=== PATIENT | male | born 1940 | race Caucasian/White ===

== ENCOUNTER → 2020-10-29 | Outpatient (CLI) | payer MEDICARE ==
[~2020-10-29] MED LIST: ASP81TEC PO; CLPD75T PO; LISI2.5T PO; MTP25TSR PO; PRV20T PO
== END ==
LOC: WOUNDCARE 12:30
PROVIDERS: ATTEND Surgery
DX: I70.235 Atherosclerosis of native arteries of right leg with ulceration of other part of foot (principal); I96 Gangrene, not elsewhere classified; L97.512 Non-pressure chronic ulcer of other part of right foot with fat layer exposed; E11.621 Type 2 diabetes mellitus with foot ulcer

== ENCOUNTER 2020-11-04 07:00 | Day surgery (SDC) | payer MEDICARE ==
[2020-11-04] VITALS (12 sets, daily range): BP systolic 116–150; BP diastolic 68–92
[~2020-11-04] VITALS: Ht 176 cm; Wt 88.0 kg
[2020-11-04] MEDS ORDERED: NS IV 1000 ML 1,000 ML ONE (07:34)
[2020-11-04] MEDS ORDERED: LIDOCAINE 1% INJ 20 ML 20 ML VIAL ONE (07:34)
[2020-11-04] MEDS ORDERED: HEParin (CATH LAB) 2,000 ML IV ONE (07:34)
[2020-11-04] MEDS ORDERED: NS IV 1000 ML 1,000 ML IV SCH (07:45)
[2020-11-04 08:09] LABS: HEMOGLOBIN 14.9 g/dL (13.3-17.7); MEAN PLATELET VOLUME 9.5 fL (9.0-12.2)
--- NOTE | 2020-11-04 08:20 | Diagnostic Imaging Report ---
INDICATION: History of hypertension, hyperlipidemia, peripheral vascular disease. Assessment prior to angiography.. TECHNIQUE: Single view chest 8:06 AM. CORRELATION STUDY: 12/19/2011 FINDINGS: The heart size, mediastinal configuration and pulmonary vascularity are within normal limits. Minimal atelectasis left midlung field. No infiltrate. IMPRESSION: 1. Negative for acute abnormality of the chest. Dictated by: Dictated on workstation # [id number]
[2020-11-04 08:29] LABS: PROTHROMBIN TIME PATIENT 13.9 SEC (12.2-14.7)
[2020-11-04] MEDS ORDERED: INSU100V5 SQ (08:31)
[2020-11-04] MEDS ORDERED: LOSA25TA41 PO (08:31)
[2020-11-04] MEDS ORDERED: INSU100V16 SQ (08:31)
[2020-11-04] MEDS ORDERED: ACET-93 PO (08:31)
[2020-11-04] MEDS ORDERED: MIDAZOLAM 5 MG/5 ML (VERSED) VIAL ONE (08:33)
[2020-11-04] MEDS ORDERED: fentaNYL INJECTION 100 MCG/2 ML AMP ONE (08:33)
[2020-11-04 08:38] LABS: BILIRUBIN,TOTAL 0.8 MG/DL (0.1-1.0); CALCIUM 9.5 MG/DL (8.5-10.1); CREATININE SERUM 1.26 MG/DL (0.60-1.30); POTASSIUM 4.2 MMOL/L (3.6-5.0); TOTAL PROTEIN 8.5 GM/DL (6.4-8.2)
[2020-11-04] MEDS ORDERED: HEParin 1000 UNIT/ML (10ML VIAL) FOR BOLUS ONE (09:38)
[2020-11-04] MEDS ORDERED: NITRO DRIP 25000 MCG/D5W 250 ML IV ONE (10:37)
--- NOTE | 2020-11-04 11:03 | Cardiac Procedure Note-CS/ASA ---
Pre-Procedure Note Pre-Op Procedure Note H&P Reviewed The H&P was reviewed, patient examined and no changes noted. Date H&P Reviewed: Nov 04, 2020 Time H&P Reviewed: 09:00 Conscious Sedation Pre-Proced Time 09:00 ASA Score 3 For ASA 3 and 4: Consider anesthesia and medical clearance. Also, for patients with a history of failed moderate sedation consider anesthesia. Airway Lungs Heart ASA score ASA 1: a normal healthy patient ASA 2: a patient with a mild systemic disease (mid diabetes, controlled hypertension, obesity x ASA 3: a patient with a severe systemic disease that limits activity (angina, COPD, prior Myocardial infarction) ASA 4: a patient with an incapacitating disease that is a constant threat to life (CHF, renal failure) ASA 5: a moribund patient not expected to survive 24 hrs. (ruptured aneurysm) ASA 6: a declared brain- patient whose organs are being harvested. For emergent operations, add the letter E after the classification Mallampati Classification Grade 3 Sedation Plan Analgesia, Amnesia, Plan communicated to team members, Discussed options with patient/fam, Discussed risks with patient/fam The patient is an appropriate candidate to undergo the planned procedure, sedation, and anesthesia. The patient immediately re-assessed prior to indication. BEV SALAZAR MD Nov 04, 2020 11:03 am
[2020-11-04] MEDS ORDERED: CLOPIDOGREL 300 MG (PLAVIX) TABLET PO ONE (11:12)
[2020-11-04] MEDS ORDERED: ASPIRIN 325 MG (5 GR) TABLET ONE (11:12)
--- NOTE | 2020-11-04 11:13 | Peripheral Report ---
Peripheral Report Physician (s)/On Air Host (s) Physician BEV SALAZAR MD Pre-Procedure Diagnosis Pre-Procedure Diagnosis: gangrene of the right foot Post-Procedure Note Procedure Start Date: Nov 04, 2020 Name of Procedure: Bilateral lower extremity runoff Third order Additional imaging Angioplasty to the right SFA and popliteal artery Findings/Procedure Note PROCEDURE NOTE: 80 years old gentleman with peripheral arterial disease, gangrene of the right foot, referred for evaluation, had no pulse in his right leg, no waveforms by PVRs. After explaining the procedure to the patient, all pros and cons were explained, all questions were answered. The patient signed the consent and then he was placed on the cardiac catheterization laboratory. The patient was placed on the cardiac catheterization laboratory. Groin was prepped SL fashion local anesthesia was used. Sheath placed in the left femoral artery, runoff to the left leg was done then I advanced a rim catheter to abdominal aortic bifurcation angiogram was done, advance the wire and I was unable to cross over using the rim, I used US catheter which helped with more support to cross over then advanced a straight catheter to the midright SFA. Angiogram was done showed total occlusion of the right SFA. Patient was given 5000 units of heparin, patient had collaterals filling down below the knee, I was unable to see any of the tibials, with significant difficulties I was able to advance command 18, I will unable to advance a mini catheter over it down to the popliteal. I used 3.0 x 40 mm balloon and was able to advance it to the popliteal artery, inject contrast through the shaft of the balloon did not show emptying. I retracted the balloon and did ballooning to the mid SFA to the proximal obstruction, angiogram showed no improvement then I removed the balloon and tried multiple different wires and I was able to advance command 18 down to the posterior tibial, advanced a mini catheter to the posterior tibial artery and removed the wire and injected in the posterior tibial and there was no clearing of the contrast at that area and I kept backing off the mini catheter to the distal SFA and at that area I saw some clearing of the contrast advance the wire again and did 5 x 100 balloon with multiple inflation involving the mid and distal SFA and popliteal artery. There was significant resistant in the popliteal artery, after retrieval of the balloon angiogram showed no improvement. Then I advanced a straight catheter back to the mid SFA and did to injection and I was able to see the distal posterior tibial artery receiving slow flow, the anterior tibial artery is occluded proximally. The sheath was exchanged back into short 6 Swazi sheath and then it was removed and closure device used FINDINGS: Left lower extremity runoff: Sluggish flow with multiple area of severe stenosis in the distal SFA and popliteal artery and tibioperoneal trunk with slow flow distally Right lower extremity runoff: Total occlusion of the distal right SFA with no reconstruction beyond that area, complex intervention with multiple wires and balloons and continue to have the total occlusion with slow flow in the right SFA that I was able to see single vessel at the foot reconstructed by collateral with very slow flow CONCLUSIONS: 1. Severe peripheral arterial disease, total occlusion of the right SFA, multiple collaterals but no reconstruction of artery, after complex attempt for intervention there was single-vessel posterior tibial artery reconstructed by collateral, very slow flow with severe diffuse disease. If we were able to establish some pulse in the posterior tibial artery, a pedal access procedure can be attempted even that the prognosis overall is poor and patient will need right BKA and possible AKA. 2. Left lower extremity has slow flow with multiple significant lesions in the left SFA and popliteal artery DISCUSSION AND RECOMMENDATIONS: Continue to maximize medical therapy, adding Lipitor, continue on aspirin and Plavix. Discuss with the surgeon for possible BKA Anesthesia Type: Conscious Sedation Estimated blood loss (mL): 50 ml Contrast Amount: 100 ml Total Radiation Dose: 203 mGy Post-Procedure Diagnosis Post-operative diagnosis: Critical limb ischemia Peripheral arterial disease Hyperlipidemia Diabetes mellitus BEV SALAZAR MD Nov 04, 2020 11:13 am
[2020-11-04] MEDS ORDERED: PATIENT MAY USE OWN MEDS, ALL PO SCH (11:15)
--- NOTE | 2020-11-04 11:30 | NUR ---
DR SALAZAR AT BEDSIDE. DR SALAZAR UNABLE TO DOPPLER BILATERAL DORSALIS PEDAL PULSES.
[2020-11-04] MEDS: NS IV 1000 ML 1,000 ML IV SCH ×2 (14:03→22:08)
[2020-11-04] MEDS: ACETAMINOPHEN 325 MG TABLET PO PRN (19:47)
[2020-11-05] VITALS: BP 162/91
[2020-11-05 03:36] LABS: HEMOGLOBIN 12.6 g/dL (13.3-17.7); MEAN PLATELET VOLUME 9.5 fL (9.0-12.2); WHITE BLOOD COUNT 7.1 10^3/uL (4.3-11.0)
[2020-11-05 04:00] VITALS: BP 163/96
[2020-11-05 04:07] LABS: CHLORIDE 104 MMOL/L (98-107); POTASSIUM 4.3 MMOL/L (3.6-5.0); SODIUM 139 MMOL/L (135-145)
[2020-11-05 04:08] LABS: CALCIUM 8.1 MG/DL (8.5-10.1)
[2020-11-05 04:09] LABS: GLUCOSE 195 MG/DL (70-105)
[2020-11-05 04:10] LABS: CARBON DIOXIDE 23 MMOL/L (21-32)
[2020-11-05 04:12] LABS: CREATININE SERUM 0.95 MG/DL (0.60-1.30); GFR ESTIMATED > 60
[2020-11-05 04:13] LABS: BUN/CREATININE RATIO 15
[2020-11-05] MEDS: ACETAMINOPHEN 325 MG TABLET PO PRN (06:10)
--- NOTE | 2020-11-05 06:44 | NUR ---
MICRO CONTACTED THIS RN REPORTING MRSA CULTURE PRECATH.
[2020-11-05 07:38] VITALS: BP 145/90
[2020-11-05] MEDS: NS IV 1000 ML 1,000 ML IV SCH ×3 (08:40→20:47)
[2020-11-05] MEDS ORDERED: ASPIRIN E.C. 81 MG (ECOTRIN) TAB PO SCH (09:00)
[2020-11-05] MEDS ORDERED: LOSARTAN 25 MG (COZAAR) TAB PO SCH (09:00)
[2020-11-05] MEDS ORDERED: CLOPIDOGREL 75 MG (PLAVIX) TABLET PO SCH (09:00)
--- NOTE | 2020-11-05 09:04 | Cardiology Discharge Summary ---
Discharge Summary Hospital Course Problems Reviewed?: Yes Hospital Course Date of Admission: Admission Diagnosis : Family Physician/Provider: Date of Discharge: 11/05/20 Discharge Diagnosis: [critical limb ischemia Peripheral arterial disease Hypertension Hyperlipidemia ] Hospital Course: [patient was admitted for elective percutaneous intervention on the right leg, complex intervention was carried out, establish some flow in the posterior tibial artery, still unable to palpate pulse, not discoverable by Doppler. Angiogram showed some flow in the posterior tibial artery, I had long discussion with the patient and with Dr. Calderon regarding the management plan, recommended referral to a tertiary care center for another attempt for intervention prior to proceeding with amputation. Patient agreed on transferring to [place], I contacted Dr. Domingo who reviewed the film and agreed on proceeding with attempt for intervention. Patient requested to go by private vehicle with his son ] Labs and Pending Lab Test: Laboratory Tests 11/05/20 03:17: White Blood Count 7.1, Red Blood Count 4.23L, Hemoglobin 12.6L, Hematocrit 39L, Mean Corpuscular Volume 92, Mean Corpuscular Hemoglobin 30, Mean Corpuscular Hemoglobin Concent 32, Red Cell Distribution Width 11.9, Platelet Count 230, Mean Platelet Volume 9.5, Sodium Level 139, Potassium Level 4.3, Chloride Level 104, Carbon Dioxide Level 23, Anion Gap 12, Blood Urea Nitrogen 14, Creatinine 0.95, Estimat Glomerular Filtration Rate > 60, BUN/Creatinine Ratio 15, Glucose Level 195H, Calcium Level 8.1L Microbiology 11/04/20 MRSA Screen - Final, Complete Home Meds Active Reported Novolog (Insulin Aspart) 100 Unit/1 Ml Susp 6 Unit SQ AC Levemir (Insulin Determir) 1,000 Units/10 Ml Soln 20 Units SQ HS Losartan Potassium 25 Mg Tablet 25 Mg PO DAILY Acetaminophen 500 Mg Tablet 500 Mg PO PRN Plavix (Clopidogrel Bisulfate) 75 Mg Tablet 75 Mg PO DAILY Aspirin Ec 81 Mg (Aspirin) 81 Mg Tabec 81 Mg PO DAILY Assessment/Pt DC Instructions transferred to [facility] by private vehicle Discharge Physical Examination Allergies: Coded Allergies: No Known Drug Allergies (Unverified , 12/19/11) General Appearance: No Apparent Distress, WD/WN HEENT: PERRL/EOMI Respiratory: Chest Non Tender, Lungs Clear Cardiovascular: Regular Rate, Rhythm, No Edema Gastrointestinal: Normal Bowel Sounds Extremity: Other (gangrene on the right first toe, absent pulse) Neurologic/Psychiatric: Alert, Oriented x3 Clinical Quality Measures Admission Status Admission Status: Observation Reason for Inpatient Admission: patient is being transferred to [facility] BEV SALAZAR MD Nov 05, 2020 09:04
[2020-11-05] MEDS ORDERED: ATOR10TA66 PO (09:06)
[2020-11-05 16:00] VITALS: BP 152/83
[2020-11-05 20:00] VITALS: BP 141/76
[2020-11-05 23:07] VITALS: BP 162/94
[2020-11-06] VITALS: BP 169/94
[2020-11-06 04:00] VITALS: BP 162/92
[2020-11-06 05:21] VITALS: BP 160/80
--- NOTE | 2020-11-06 05:29 | NUR ---
0505-pt was discharged to [facility] with his daughter Marissa via private car, pt information packet given to her. this rn informed her that pt did have surgical bath with surgical scrub, has been npo since midnight also. She verbalized understanding and denies any questions.
== END 2020-11-06 05:05 | disposition home or self-care (01) ==
LOC: CATH 07:00 → CSD 11:20 → CATH 11-06 05:05
PROVIDERS: ATTEND Internal Medicine Cardiovascular Disease
DX: I73.9 Peripheral vascular disease, unspecified (principal); I10 Essential (primary) hypertension; E78.2 Mixed hyperlipidemia; Z79.82 Long term (current) use of aspirin; Z79.899 Other long term (current) drug therapy
CPT/HCPCS: 36247; 36248; 37224; 71045; 75716; 80053; 80061; 85027; 85347; 85610; 85730; 87081; C1725 ×2; C1760; C1769 ×4; C1887 ×2; C1894 ×2; 36415

== ENCOUNTER 2020-12-06 16:06 | Emergency (ER) | payer MEDICARE ==
[~2020-12-06] VITALS: Ht 182.8 cm; Wt 88.4 kg
[~2020-12-06 16:06] MED LIST changes: +ACET-93 PO; +ATOR10TA66 PO; +INSU100V16 SQ; +INSU100V5 SQ; +LOSA25TA41 PO
--- NOTE | 2020-12-06 16:39 | ED Lower Extremity ---
General Chief Complaint: Lower Extremity Stated Complaint: R TOE AMP Source: patient Exam Limitations: no limitations History of Present Illness Date Seen by Provider: Dec 06, 2020 Time Seen by Provider: 16:30 Initial Comments This is a healthy appearing 80 yo male who was sent over per the CT to rule out DVT. CT reports patient recently had amputation of right great toe and had c/o of pain in his foot. Also reports he had a positive Homans on RLE. He reports c hills upon arrival to ED and mild pain in his foot, but has no other complaints. Denies cough, shortness of breath, chest pain, nausea/vomiting/diarrhea, or abdominal pain. Allergies and Home Medications Allergies Coded Allergies: No Known Drug Allergies (Unverified , 12/19/11) Home Medications Acetaminophen 500 Mg Tablet, 500 MG PO PRN, (Reported) Aspirin 81 Mg Tabec, 81 MG PO DAILY, (Reported) Atorvastatin Calcium 10 Mg Tablet, 10 MG PO HS Prescribed by: BEV SALAZAR on 11/05/20 0906 Clopidogrel 75 Mg Tablet, 75 MG PO DAILY, (Reported) Insulin Aspart 100 Unit/1 Ml Susp, 6 UNIT SQ AC, (Reported) Insulin Determir 1,000 Units/10 Ml Soln, 20 UNITS SQ HS, (Reported) Levofloxacin 500 Mg Tablet, 500 MG PO DAILY Prescribed by: RAMAN MOLINA on 12/06/20 1728 Losartan Potassium 25 Mg Tablet, 25 MG PO DAILY, (Reported) Patient Home Medication List Home Medication List Reviewed: Yes Review of Systems Constitutional: chills EENTM: no symptoms reported Respiratory: no symptoms reported Cardiovascular: no symptoms reported Gastrointestinal: no symptoms reported Genitourinary: no symptoms reported Musculoskeletal: see HPI Skin: see HPI Psychiatric/Neurological: No Symptoms Reported Past Qghkuqx-Oohpmn-Oygkvp Hx Patient Social History Alcohol Use: Denies Use Recreational Drug Use: No 2nd Hand Smoke Exposure: No Recent Foreign Travel: No Contact w/Someone Who Travel: No Recent Hopitalizations: Yes Immunizations Up To Date Tetanus Booster (TDap): Unknown Date of Pneumonia Vaccine: Aug 08, 2018 Date of Influenza Vaccine: Aug 14, 2020 Past Medical History Surgeries: Yes (prostate,hernia, R toe amputation) Prostatectomy Respiratory: No Cardiac: Yes (STENT PLACEMENT 12/21/2011) High Cholesterol, Hypertension, Peripheral Vascular Neurological: No Reproductive Disorders: No Gastrointestinal: No Musculoskeletal: No Endocrine: Yes Diabetes, Non-Insulin dep Cancer: No Psychosocial: No Integumentary: Yes (chronic ulcer right foor) Blood Disorders: No Physical Exam Vital Signs Vital Signs - First Documented 12/06/20 16:20 Temp 37.8 Pulse 90 Resp 20 B/P (MAP) 163/105 (124) Pulse Ox 97 O2 Delivery Room Air Capillary Refill : Height, Weight, BMI Height: '" Weight: lbs. oz. kg; 28.40 BMI Method: General Appearance: WD/WN, no apparent distress HEENT: PERRL/EOMI Neck: full range of motion, normal inspection Cardiovascular: normal peripheral pulses, regular rate, rhythm Respiratory: lungs clear, normal breath sounds Hips: bilateral hip non-tender, bilateral hip normal inspection, bilateral hip normal range of motion Legs: bilateral leg non-tender, bilateral leg normal inspection, bilateral leg normal range of motion Knees: bilateral knee non-tender, bilateral knee normal inspection, bilateral knee normal range of motion Feet: right foot other (Dressing to Right foot C/D/I) Neurologic/Tendon: normal sensation, normal motor functions, normal tendon functions Neurologic/Psychiatric: alert, normal mood/affect Skin: normal color, warm/dry Progress/Results/Core Measures Results/Orders Lab Results Laboratory Tests Test 12/06/20 16:40 Range/Units White Blood Count 12.3 H 4.3-11.0 10^3/uL Red Blood Count 4.05 L 4.30-5.52 10^6/uL Hemoglobin 11.8 L 13.3-17.7 g/dL Hematocrit 37 L 40-54 % Mean Corpuscular Volume 91 80-99 fL Mean Corpuscular Hemoglobin 29 25-34 pg Mean Corpuscular Hemoglobin Concent 32 32-36 g/dL Red Cell Distribution Width 12.4 10.0-14.5 % Platelet Count 296 130-400 10^3/uL Mean Platelet Volume 9.1 9.0-12.2 fL Immature Granulocyte % (Auto) 0 % Neutrophils (%) (Auto) 85 H 42-75 % Lymphocytes (%) (Auto) 7 L 12-44 % Monocytes (%) (Auto) 7 0-12 % Eosinophils (%) (Auto) 0 0-10 % Basophils (%) (Auto) 0 0-10 % Neutrophils # (Auto) 10.5 H 1.8-7.8 10^3/uL Lymphocytes # (Auto) 0.9 L 1.0-4.0 10^3/uL Monocytes # (Auto) 0.8 0.0-1.0 10^3/uL Eosinophils # (Auto) 0.0 0.0-0.3 10^3/uL Basophils # (Auto) 0.0 0.0-0.1 10^3/uL Immature Granulocyte # (Auto) 0.0 0.0-0.1 10^3/uL Neutrophils % (Manual) 90 % Lymphocytes % (Manual) 8 % Monocytes % (Manual) 2 % Blood Morphology Comment NORMAL Prothrombin Time 14.1 12.2-14.7 SEC INR Comment 1.0 0.8-1.4 Activated Partial Thromboplast Time 33 24-35 SEC Sodium Level 133 L 135-145 MMOL/L Potassium Level 4.4 3.6-5.0 MMOL/L Chloride Level 97 L 98-107 MMOL/L Carbon Dioxide Level 25 21-32 MMOL/L Anion Gap 11 5-14 MMOL/L Blood Urea Nitrogen 17 7-18 MG/DL Creatinine 1.08 0.60-1.30 MG/DL Estimat Glomerular Filtration Rate > 60 BUN/Creatinine Ratio 16 Glucose Level 194 H 70-105 MG/DL Lactic Acid Level 1.77 0.50-2.00 MMOL/L Calcium Level 9.4 8.5-10.1 MG/DL Corrected Calcium 9.6 8.5-10.1 MG/DL Total Bilirubin 0.4 0.1-1.0 MG/DL Aspartate Amino Transf (AST/SGOT) 30 5-34 U/L Alanine Aminotransferase (ALT/SGPT) 31 0-55 U/L Alkaline Phosphatase 89 40-136 U/L Total Protein 8.3 H 6.4-8.2 GM/DL Albumin 3.7 3.2-4.5 GM/DL Micro Results Microbiology 12/06/20 Blood Culture - Preliminary, Resulted No growth 12/06/20 Blood Culture - Preliminary, Resulted No growth My Orders Orders - RAMAN MOLINA FEATHER STITCHER Us Venous Lower Ext Rt (12/06/20 16:09) Cbc With Automated Diff (12/06/20 16:27) Comprehensive Metabolic Panel (12/06/20 16:27) Blood Culture (12/06/20 16:27) Protime With Inr (12/06/20 16:27) Partial Thromboplastin Time (12/06/20 16:27) Ed Iv/Invasive Line Start (12/06/20 16:27) Lactic Acid Analyzer (12/06/20 16:27) Manual Differential (12/06/20 16:40) Vital Signs/I&O 12/06/20 12/06/20 16:20 17:39 Temp 37.8 37.8 Pulse 90 84 Resp 20 20 B/P (MAP) 163/105 (124) 165/86 (124) Pulse Ox 97 98 O2 Delivery Room Air Room Air Progress Progress Note : Progress Note Pt. examined and in no distress. Temperature 37.8. Initiated sepsis workup and orders placed for venous US RLE. Labs reviewed. Slightly elevated WBC-12.3, lactic-1.7. US neg for DVT. Pain is likely from infection in foot. Plan to continue wound vac at CT per surgeon instructions and place on antibiotics. Will place on Levaquin as patient has tolerated well in past, and has med interaction with Bactrim and Losartan. Reviewed discharge plan and he is agreeable with plan. Diagnostic Imaging Diagonstic Imaging: Ultrasound Plain Films/CT/US/NM/MRI: leg Comments NAME: SILVANO MAN [facility] REC#: [id number] PT STATUS: REG ER : 1940 PHYSICIAN: RAMAN MOLINA APRN ADMIT DATE: 12/06/20/ER Draft Date of Exam:12/06/20 US VENOUS LOWER EXT RT PROCEDURE: US right lower extremity venous. TECHNIQUE: Multiple real-time grayscale images were obtained over the right lower extremity in various projections. Additional spectral analysis and color Doppler duplex images were also obtained. INDICATION: Right calf pain, positive Homans sign. Recent right toe amputation. COMPARISON: None FINDINGS: The right common femoral vein, femoral vein, deep femoral vein, and popliteal vein are normal in appearance. These vessels show normal compressibility, color flow and doppler augmentation. The visualized deep calf veins demonstrate no distinct intraluminal thrombus. IMPRESSION: 1. No sonographic evidence of deep venous thrombosis in the right lower extremity. Dictated on workstation # [id number] Dict: 12/06/20 1701 Trans: 12/06/20 1704 [facility] [id number] Interpreted by: MIKE POON MD Electronically signed by: Departure Impression Primary Impression: Infection of right foot Additional Impression: Leg pain Disposition: 01 HOME, SELF-CARE Condition: Stable/Unchanged Departure-Patient Inst. Decision time for Depature: 17:24 Referrals: PERLITA MURILLO MD (PCP/Family) Primary Care Physician Patient Instructions: Amputation of the Foot or Toe (DC) Add. Discharge Instructions: Plan: 1. Discharge back to half-way. Continue wound care as directed by surgeon. 2. May take Tylenol or Ibuprofen as needed for pain per package instructions. 3.Take antibiotics as directed. Keep scheduled follow ups regarding wound care. 4. Return for any new or concerning symptoms. No blood clots identified today. All discharge instructions reviewed with patient and/or family. Voiced understanding. Scripts Levofloxacin (Levofloxacin) 500 Mg Tablet 500 MG PO DAILY for 7 Days, #7 TAB 0 Refills Prov: RAMAN MOLINA FEATHER STITCHER 12/06/20 RAMAN MOLINA FEATHER STITCHER Dec 06, 2020 16:39
[2020-12-06 16:51] LABS: BASOPHILS % (AUTO) 0 % (0-10); EOSINOPHILS % (AUTO) 0 % (0-10); HEMATOCRIT 37 % (40-54); HEMOGLOBIN 11.8 g/dL (13.3-17.7); LYMPHOCYTES # (AUTO) 0.9 10^3/uL (1.0-4.0); LYMPHOCYTES % (AUTO) 7 % (12-44); MEAN CORPUSCULAR HEMOGLOBIN 29 pg (25-34); MEAN CORPUSCULAR HGB CONC 32 g/dL (32-36); MEAN CORPUSCULAR VOLUME 91 fL (80-99); MEAN PLATELET VOLUME 9.1 fL (9.0-12.2); MONOCYTES # (AUTO) 0.8 10^3/uL (0.0-1.0); MONOCYTES % (AUTO) 7 % (0-12); NEUTROPHILS # (AUTO) 10.5 10^3/uL (1.8-7.8); NEUTROPHILS % (AUTO) 85 % (42-75); PLATELET COUNT 296 10^3/uL (130-400); WHITE BLOOD COUNT 12.3 10^3/uL (4.3-11.0)
[2020-12-06 17:01] LABS: ALBUMIN 3.7 GM/DL (3.2-4.5); CHLORIDE 97 MMOL/L (98-107); POTASSIUM 4.4 MMOL/L (3.6-5.0); SODIUM 133 MMOL/L (135-145)
[2020-12-06 17:02] LABS: CALCIUM 9.4 MG/DL (8.5-10.1); PROTHROMBIN TIME PATIENT 14.1 SEC (12.2-14.7)
[2020-12-06 17:03] LABS: GLUCOSE 194 MG/DL (70-105); TOTAL PROTEIN 8.3 GM/DL (6.4-8.2)
[2020-12-06 17:04] LABS: CARBON DIOXIDE 25 MMOL/L (21-32)
[2020-12-06 17:05] LABS: BILIRUBIN,TOTAL 0.4 MG/DL (0.1-1.0)
--- NOTE | 2020-12-06 17:05 | Diagnostic Imaging Report ---
PROCEDURE: US right lower extremity venous. TECHNIQUE: Multiple real-time grayscale images were obtained over the right lower extremity in various projections. Additional spectral analysis and color Doppler duplex images were also obtained. INDICATION: Right calf pain, positive Homans sign. Recent right toe amputation. COMPARISON: None FINDINGS: The right common femoral vein, femoral vein, deep femoral vein, and popliteal vein are normal in appearance. These vessels show normal compressibility, color flow and doppler augmentation. The visualized deep calf veins demonstrate no distinct intraluminal thrombus. IMPRESSION: 1. No sonographic evidence of deep venous thrombosis in the right lower extremity. Dictated by: Dictated on workstation # [id number]
[2020-12-06 17:07] LABS: ALKALINE PHOSPHATASE 89 U/L (40-136); CREATININE SERUM 1.08 MG/DL (0.60-1.30); GFR ESTIMATED > 60
[2020-12-06 17:08] LABS: BUN/CREATININE RATIO 16
[2020-12-06 17:10] LABS: ALANINE AMINOTRANSFERASE 31 U/L (0-55)
[2020-12-06 17:24] LABS: NEUTROPHILS % (MANUAL) 90 %
[2020-12-06 17:25] LABS: LYMPHOCYTES % (MANUAL) 8 %; MONOCYTES % (MANUAL) 2 %; RBC MORPH NORMAL
--- NOTE | 2020-12-06 17:26 | NUR ---
Called [facility] for transportation for pt back to [facility].
[2020-12-06] MEDS ORDERED: LEVO500T80 PO (17:28)
[2020-12-06 17:39] VITALS: BP 165/86
--- NOTE | 2020-12-06 18:23 | NUR ---
Called [facility] and was told transportation would be here in 20 minutes.
== END 2020-12-06 18:40 | disposition home or self-care (01) ==
LOC: EDUNIT# 16:06 → ER 16:08
DX: L08.9 Local infection of the skin and subcutaneous tissue, unspecified (principal); M79.661 Pain in right lower leg; I10 Essential (primary) hypertension; E78.00 Pure hypercholesterolemia, unspecified; E11.9 Type 2 diabetes mellitus without complications; Z89.421 Acquired absence of other right toe(s); Z79.4 Long term (current) use of insulin; Z79.82 Long term (current) use of aspirin
CPT/HCPCS: 36415; 80053; 83605; 85007; 85027; 85610; 85730; 87040

== ENCOUNTER → 2021-03-26 | Outpatient (CLI) | payer MEDICARE ==
[~2021-03-26] VITALS: Ht 182 cm; Wt 89.0 kg
[~2021-03-26] MED LIST changes: +CATHETER FLUSH 10 ML SYR IV PRN; +LEVO500T80 PO; +REGADENOSON 0.4 MG/5 ML SYR (LEXISCAN) IV ONE
[2021-03-26 12:12] VITALS: BP 150/99
--- NOTE | 2021-03-26 14:40 | Cardiology Stress Test Report ---
Stress Test Report Date of Procedure/Referring: Date of Procedure: Mar 26, 2021 PCP Bev Chu MD Admitting Physician Jm Taylor MD Indications: HTN Baseline Heart Rate: 80 Baseline Blood Pressure: Blood Pressure Systolic: 150 Blood Pressure Diastolic: 99 Baseline Vitals Vital Signs Date Time Temp Pulse Resp B/P (MAP) Pulse Ox O2 Delivery O2 Flow Rate FiO2 03/26/21 12:12 79 16 150/99 (116) 98 Room Air Baseline EKG: Baseline EKG: NSR Summary After explaining the procedure to the patient, he signed a consent and then brought to the stress nuclear laboratory. Patient received 0.4 mg Lexiscan for stress test, ECG, heart rate and blood pressure were monitored continuously. Resting and stress dose of radio tracer were injected, imaging was acquired and reviewed in short axis, horizontal long axis and vertical long axis views. TID: 0.91 SSS: 7 SDS: 2 EF: 68 1. Patient tolerated Lexiscan well 2. Diaphragmatic attenuation with fixed defect at the basal to mid inferior wall and inferolateral wall, could be an old infarct. No significant ischemia was noted. 3. Normal left ventricular size with hypokinesia at the inferior wall and inferolateral wall, ejection fraction 68% BEV CHU MD Mar 26, 2021 14:40
== END ==
LOC: CARD 09:58
PROVIDERS: ATTEND Internal Medicine Cardiovascular Disease
DX: I10 Essential (primary) hypertension (principal); R07.9 Chest pain, unspecified
CPT/HCPCS: 78452; 93017; 93306; A9502

== ENCOUNTER 2021-05-15 13:54 | Emergency (ER) | payer MEDICARE ==
[~2021-05-15] VITALS: Ht 182 cm; Wt 83.9 kg
[~2021-05-15 13:54] MED LIST changes: -CATHETER FLUSH 10 ML SYR IV PRN; -REGADENOSON 0.4 MG/5 ML SYR (LEXISCAN) IV ONE
--- NOTE | 2021-05-15 14:08 | ED General ---
General Stated Complaint: WEAKNESS,COVID + Source of Information: Patient Exam Limitations: No Limitations (ALLEN BASSETT APRN) History of Present Illness Date Seen by Provider: May 15, 2021 Time Seen by Provider: 14:06 Initial Comments To ER with reports of weakness and Covid positive. He states that he has been feeling ill for about 2 weeks and tested positive about a week ago. He is from [facility]. They called his primary care provider and reported his poor intake. Was given an order for IV fluids at the detention but they were unable to establish IV access so they referred the patient to the emergency room for further work-up. He reports that he had some nausea earlier but none currently. Denies any pain or shortness of breath. Timing/Duration: Constant Severity: Moderate Associated Systoms: Weakness (ALLEN BASSETT APRN) Allergies and Home Medications Allergies Coded Allergies: No Known Drug Allergies (Unverified , 12/19/11) Home Medications Acetaminophen 500 Mg Tablet, 500 MG PO PRN, (Reported) Aspirin 81 Mg Tabec, 81 MG PO DAILY, (Reported) Atorvastatin Calcium 10 Mg Tablet, 10 MG PO HS Prescribed by: BEV SALAZAR on 11/05/20 0906 Cefuroxime Axetil 250 Mg Tablet, 250 MG PO BID Prescribed by: ALLEN BASSETT on 05/15/21 1533 Clopidogrel 75 Mg Tablet, 75 MG PO DAILY, (Reported) Insulin Aspart 100 Unit/1 Ml Susp, 6 UNIT SQ AC, (Reported) Insulin Determir 1,000 Units/10 Ml Soln, 20 UNITS SQ HS, (Reported) Levofloxacin 500 Mg Tablet, 500 MG PO DAILY Prescribed by: RAMAN MOLINA on 12/06/20 1728 Losartan Potassium 25 Mg Tablet, 25 MG PO DAILY, (Reported) Patient Home Medication List Home Medication List Reviewed: Yes (ALLEN BASSETT APRN) Review of Systems Review of Systems Constitutional: see HPI EENTM: see HPI Respiratory: no symptoms reported Cardiovascular: no symptoms reported Genitourinary: no symptoms reported Musculoskeletal: no symptoms reported Skin: no symptoms reported Psychiatric/Neurological: No Symptoms Reported Hematologic/Lymphatic: No Symptoms Reported Immunological/Allergic: no symptoms reported (ALLEN BASSETT APRN) Past Auondzc-Gqtxgw-Iucdum Hx Patient Social History 2nd Hand Smoke Exposure: No Recent Hopitalizations: Yes (ALLEN BASSETT APRN) Immunizations Up To Date Tetanus Booster (TDap): Unknown Date of Pneumonia Vaccine: Aug 08, 2018 Date of Influenza Vaccine: Aug 14, 2020 (ALLEN BASSETT APRN) Past Medical History Surgeries: Yes (prostate,hernia, R toe amputation) Prostatectomy Respiratory: No Cardiac: Yes (STENT PLACEMENT 12/21/2011) High Cholesterol, Hypertension, Peripheral Vascular Neurological: No Reproductive Disorders: No Gastrointestinal: No Musculoskeletal: No Endocrine: Yes Diabetes, Non-Insulin dep Cancer: No Psychosocial: No Integumentary: Yes (chronic ulcer right foor) Blood Disorders: No (ALLEN BASSETT APRN) Physical Exam Vital Signs Vital Signs - First Documented (RUBIN FLETCHER MD) Vital Signs Capillary Refill : (ALLEN BASSETT APRN) Height, Weight, BMI Height: '" Weight: lbs. oz. kg; 26.86 BMI Method: General Appearance: No Apparent Distress, WD/WN, Other (Alert and oriented no distress speaks in full sentences. Oxygen saturation 89 to 90% on room air. Given 2 L of supplemental oxygen) Eyes: Bilateral Eye Normal Inspection, Bilateral Eye PERRL, Bilateral Eye EOMI HEENT: PERRL/EOMI, TMs Normal Neck: Full Range of Motion, Normal Inspection Respiratory: No Accessory Muscle Use, No Respiratory Distress, Decreased Breath Sounds Cardiovascular: Regular Rate, Rhythm, Normal Peripheral Pulses Gastrointestinal: Normal Bowel Sounds, Non Tender, Soft Extremity: Other (Right leg amputation) Neurologic/Psychiatric: Alert, Oriented x3 Skin: Normal Color, Warm/Dry (ALLEN BASSETT APRN) Progress/Results/Core Measures Suspected Sepsis SIRS Temperature: Pulse: Respiratory Rate: Laboratory Tests 05/15/21 14:00: White Blood Count 6.4 Blood Pressure / Mean: Laboratory Tests 05/15/21 14:00: Creatinine 1.20, INR Comment 1.0, Platelet Count 198, Total Bilirubin 0.5 (ALLEN BASSETT APRN) Results/Orders Lab Results Laboratory Tests Test 05/15/21 14:00 Range/Units White Blood Count 6.4 4.3-11.0 10^3/uL Red Blood Count 4.98 4.30-5.52 10^6/uL Hemoglobin 14.8 13.3-17.7 g/dL Hematocrit 45 40-54 % Mean Corpuscular Volume 89 80-99 fL Mean Corpuscular Hemoglobin 30 25-34 pg Mean Corpuscular Hemoglobin Concent 33 32-36 g/dL Red Cell Distribution Width 13.7 10.0-14.5 % Platelet Count 198 130-400 10^3/uL Mean Platelet Volume 8.7 L 9.0-12.2 fL Immature Granulocyte % (Auto) 0 % Neutrophils (%) (Auto) 85 H 42-75 % Lymphocytes (%) (Auto) 8 L 12-44 % Monocytes (%) (Auto) 6 0-12 % Eosinophils (%) (Auto) 0 0-10 % Basophils (%) (Auto) 0 0-10 % Neutrophils # (Auto) 5.4 1.8-7.8 X 10^3 Lymphocytes # (Auto) 0.5 L 1.0-4.0 X 10^3 Monocytes # (Auto) 0.4 0.0-1.0 X 10^3 Eosinophils # (Auto) 0.0 0.0-0.3 10^3/uL Basophils # (Auto) 0.0 0.0-0.1 10^3/uL Immature Granulocyte # (Auto) 0.0 0.0-0.1 10^3/uL Prothrombin Time 13.5 12.2-14.7 SEC INR Comment 1.0 0.8-1.4 D-Dimer 1.48 H 0.00-0.49 UG/ML Sodium Level 137 135-145 MMOL/L Potassium Level 4.0 3.6-5.0 MMOL/L Chloride Level 100 98-107 MMOL/L Carbon Dioxide Level 21 21-32 MMOL/L Anion Gap 16 H 5-14 MMOL/L Blood Urea Nitrogen 28 H 7-18 MG/DL Creatinine 1.20 0.60-1.30 MG/DL Estimat Glomerular Filtration Rate 58 BUN/Creatinine Ratio 23 Glucose Level 109 H 70-105 MG/DL Calcium Level 9.1 8.5-10.1 MG/DL Corrected Calcium 9.3 8.5-10.1 MG/DL Total Bilirubin 0.5 0.1-1.0 MG/DL Aspartate Amino Transf (AST/SGOT) 41 H 5-34 U/L Alanine Aminotransferase (ALT/SGPT) 24 0-55 U/L Alkaline Phosphatase 59 40-136 U/L C-Reactive Protein High Sensitivity 20.84 H 0.00-0.50 MG/DL Total Protein 7.5 6.4-8.2 GM/DL Albumin 3.7 3.2-4.5 GM/DL Procalcitonin 0.50 H <0.10 NG/ML (RUBIN FLETCHER MD) Medications Given in ED Current Medications Medications Dose Ordered Sig/Meek Route Start Time Stop Time Status Last Admin Dose Admin Iohexol 100 ml ONCE ONCE IV 05/15/21 14:45 05/15/21 14:46 DC 05/15/21 15:07 74 ML Sodium Chloride 10 ml NEEDED PRN IV 05/15/21 14:45 05/15/21 18:10 DC 05/15/21 15:08 10 ML Sodium Chloride 100 ml ONCE ONCE IV 05/15/21 14:45 05/15/21 14:46 DC 05/15/21 15:08 80 ML (RUBIN FLETCHER MD) Vital Signs/I&O 05/15/21 05/15/21 05/15/21 14:13 14:13 18:00 Temp 38.0 38.0 Pulse 96 93 Resp 18 18 B/P (MAP) 127/83 (98) 143/75 (98) Pulse Ox 95 97 O2 Delivery Nasal Cannula Nasal Cannula O2 Flow Rate 2.00 2.00 2.00 (RUBIN FLETCHER MD) Vital Signs/I&O Capillary Refill : (ALLEN BASSETT APRN) Diagnostic Imaging Diagonstic Imaging: Xray Comments NAME: SILVANO MAN [facility] REC#: [id number] PT STATUS: REG ER : 1940 PHYSICIAN: ALLEN BASSETT APRN ADMIT DATE: 05/15/21/ER Draft Date of Exam:05/15/21 CHEST 1 VIEW, AP/PA ONLY INDICATION: Cough, Covid positive patient. EXAMINATION: PA chest was obtained at 2:25 p.m. FINDINGS: Heart is normal in size. Mediastinal silhouette is unremarkable. There is some minimal patchy infiltrate in the left base. Lung pérez are otherwise clear. There is no pneumothorax or pleural fluid. IMPRESSION: Minimal patchy infiltrate in the left lung base. Otherwise negative chest. Dictated on workstation # [id number] Dict: 05/15/21 1440 Trans: 05/15/21 1451 PJE [id number] Interpreted by: ALFA HILL MD Electronically signed by: (ALLEN BASSETT APRN) Departure Communication (Admissions) Family Conversation NAME: SILVANO MAN [facility] REC#: [id number] PT STATUS: REG ER : 1940 PHYSICIAN: ALLEN BASSETT APRN ADMIT DATE: 05/15/21/ER Signed Date of Exam:05/15/21 CT ANGIO CHEST W PROCEDURE: CT angiography of the chest with contrast. TECHNIQUE: Multiple contiguous axial images were obtained through the chest after uneventful bolus administration of intravenous contrast. 3D reconstructed CTA MIP acquisitions were also performed. Auto Exposure Controls were utilized during the CT exam to meet ALARA standards for radiation dose reduction. INDICATION: Covid-19 positive. Patient has weakness and elevated d-dimer. COMPARISON: No prior studies are available for comparison. Evaluation of the pulmonary arterial system is without evidence of thromboembolism. No filling defects are seen within central, lobar or segmental branches. No pericardial or pleural fluid is identified. No axillary, hilar or mediastinal lymphadenopathy is detected. There are patchy airspace infiltrates in bilateral lower lobes as well as portions of the lingula suggestive of pneumonia. Upper abdomen demonstrates small stones within the gallbladder. IMPRESSION: 1. No evidence of pulmonary embolism or thoracic aortic dissection. 2. Patchy bibasilar infiltrates. 3. Cholelithiasis. Dictated by: Dictated on workstation # [id number] Dict: 05/15/21 1515 Trans: 05/15/21 1526 PJE [id number] Interpreted by: ALIA RODRIGUEZ MD Electronically signed by: ALIA RODRIGUEZ MD 05/15/21 1526 1425-RN Trintiy from [facility] called to report that if we can establish IV access they could give the IV fluids and the Regeneron at their facility. Discussed with her that the IV fluids were already started here, I will give an order for supplemental O2 at the detention and they state that they already have the order for Regeneron to infuse. 1531-I spoke with Adrienne Black from [facility] . Will check CBC CMP here give 1 L of IV fluids, CT angio chest to evaluate for PE. I will discharged home to the detention on Ceftin given the infiltrate plus the slightly elevated procalcitonin, supplemental oxygen at 2 to 6 L/min per nasal cannula as needed to keep sats above 90%. 1544-his oxygen saturation at this time is 93 on room air. His supplemental oxygen has been turned off. 1555 his oxygen saturation has fallen to 88-89% on room air. This disqualifies him from regeneron infusion. O2 turned back on at 2LPM (ALLEN BASSETT APRN) Impression Primary Impression: COVID-19 Disposition: 01 HOME, SELF-CARE Condition: Stable Departure-Patient Inst. Decision time for Depature: 15:31 (ALLEN BASSETT APRN) Referrals: PERLITA MURILLO MD (PCP/Family) Primary Care Physician Patient Instructions: COVID-19 Overview Add. Discharge Instructions: 1. Return to ER for any concerns 2. Follow-up with your doctor next week Scripts Cefuroxime Axetil (Cefuroxime) 250 Mg Tablet 250 MG PO BID, #10 TAB Prov: ALLEN BASSETT APRN 05/15/21 Attending physician statement: I was physically present as attending physician in the emergency room at the time of this patient's care, but I was not directly involved in the patient's care. (RUBIN FLETCHER MD) Copy Copies To 1: PERLITA MURILLO MD, PETER J APRN May 15, 2021 14:08 RUBIN FLETCHER MD May 15, 2021 19:28
[2021-05-15] MEDS ORDERED: NS IV 1000 ML 1,000 ML IV SCH (14:15)
[2021-05-15 14:16] LABS: BASOPHILS % (AUTO) 0 % (0-10); EOSINOPHILS % (AUTO) 0 % (0-10); HEMATOCRIT 45 % (40-54); HEMOGLOBIN 14.8 g/dL (13.3-17.7); LYMPHOCYTES # (AUTO) 0.5 X 10^3 (1.0-4.0); LYMPHOCYTES % (AUTO) 8 % (12-44); MEAN CORPUSCULAR HEMOGLOBIN 30 pg (25-34); MEAN CORPUSCULAR HGB CONC 33 g/dL (32-36); MEAN CORPUSCULAR VOLUME 89 fL (80-99); MEAN PLATELET VOLUME 8.7 fL (9.0-12.2); MONOCYTES # (AUTO) 0.4 X 10^3 (0.0-1.0); MONOCYTES % (AUTO) 6 % (0-12); NEUTROPHILS # (AUTO) 5.4 X 10^3 (1.8-7.8); NEUTROPHILS % (AUTO) 85 % (42-75); PLATELET COUNT 198 10^3/uL (130-400); WHITE BLOOD COUNT 6.4 10^3/uL (4.3-11.0)
[2021-05-15 14:28] LABS: ALBUMIN 3.7 GM/DL (3.2-4.5)
[2021-05-15 14:30] LABS: CALCIUM 9.1 MG/DL (8.5-10.1); FIBRIN DEGRADATION PRODUCTS 1.48 UG/ML (0.00-0.49); PROTHROMBIN TIME PATIENT 13.5 SEC (12.2-14.7)
[2021-05-15 14:31] LABS: TOTAL PROTEIN 7.5 GM/DL (6.4-8.2)
[2021-05-15 14:33] LABS: BILIRUBIN,TOTAL 0.5 MG/DL (0.1-1.0)
[2021-05-15 14:35] LABS: CREATININE SERUM 1.2 MG/DL (0.60-1.30)
[2021-05-15] MEDS ORDERED: CATHETER FLUSH 10 ML SYR IV PRN (14:45)
[2021-05-15] MEDS ORDERED: NS 100 ML (IVPB) BAG IV ONE (14:45)
[2021-05-15] MEDS ORDERED: HOLD METFORMIN - RECEIVED CONTRAST 20 ML VIAL IV SCH (14:45)
[2021-05-15] MEDS ORDERED: IOHEXOL 350 MG/ML 100 ML (OMNIPAQUE 350) VIAL IV ONE (14:45)
--- NOTE | 2021-05-15 14:51 | Diagnostic Imaging Report ---
INDICATION: Cough, Covid positive patient. EXAMINATION: PA chest was obtained at 2:25 p.m. FINDINGS: Heart is normal in size. Mediastinal silhouette is unremarkable. There is some minimal patchy infiltrate in the left base. Lung pérez are otherwise clear. There is no pneumothorax or pleural fluid. IMPRESSION: Minimal patchy infiltrate in the left lung base. Otherwise negative chest. Dictated by: Dictated on workstation # [id number]
--- NOTE | 2021-05-15 15:24 | Diagnostic Imaging Report ---
PROCEDURE: CT angiography of the chest with contrast. TECHNIQUE: Multiple contiguous axial images were obtained through the chest after uneventful bolus administration of intravenous contrast. 3D reconstructed CTA MIP acquisitions were also performed. Auto Exposure Controls were utilized during the CT exam to meet ALARA standards for radiation dose reduction. INDICATION: Covid-19 positive. Patient has weakness and elevated d-dimer. COMPARISON: No prior studies are available for comparison. Evaluation of the pulmonary arterial system is without evidence of thromboembolism. No filling defects are seen within central, lobar or segmental branches. No pericardial or pleural fluid is identified. No axillary, hilar or mediastinal lymphadenopathy is detected. There are patchy airspace infiltrates in bilateral lower lobes as well as portions of the lingula suggestive of pneumonia. Upper abdomen demonstrates small stones within the gallbladder. IMPRESSION: 1. No evidence of pulmonary embolism or thoracic aortic dissection. 2. Patchy bibasilar infiltrates. 3. Cholelithiasis. Dictated by: Dictated on workstation # [id number]
[2021-05-15] MEDS ORDERED: CEFU250T80 PO (15:33)
[2021-05-15 18:00] VITALS: BP 143/75
== END 2021-05-15 18:00 | disposition home or self-care (01) ==
LOC: EDUNIT# 13:54 → ER 13:56
DX: U07.1 COVID-19 (principal); I10 Essential (primary) hypertension; E78.00 Pure hypercholesterolemia, unspecified; E11.9 Type 2 diabetes mellitus without complications; Z79.82 Long term (current) use of aspirin; Z79.899 Other long term (current) drug therapy
CPT/HCPCS: 36415; 71045; 71275; 80053; 84145; 85025; 85379; 85610; 86141

== ENCOUNTER 2021-05-16 13:34 | Outpatient (CLI) | payer MEDICARE ==
[~2021-05-16] VITALS: Ht 182.9 cm
[~2021-05-16 13:34] MED LIST changes: +CEFU250T80 PO
[2021-05-16 13:35] VITALS: BP 109/77
[2021-05-16] MEDS ORDERED: diphenhydrAMINE 50 MG/ML INJ (BENADRYL) IV PRN (13:45)
[2021-05-16] MEDS ORDERED: [UNRECOGNIZED DRUG - OTHER] IV ONE (13:45)
[2021-05-16] MEDS ORDERED: EPINEPHrine INJECTION 1 MG/ML AMP IM PRN (13:45)
== END 2021-05-16 14:35 | disposition home or self-care (01) ==
LOC: INFUSION 13:34
PROVIDERS: ATTEND Nurse Practitioner Community Health
DX: Z23 Encounter for immunization (principal); U07.1 COVID-19

== ENCOUNTER 2021-05-16 15:04 | Emergency (ER) | payer MEDICARE ==
[~2021-05-16] VITALS: Ht 177 cm; Wt 70.0 kg
--- NOTE | 2021-05-16 15:52 | ED Respiratory ---
General Chief Complaint: Respiratory Problems Stated Complaint: COVID POSITIVE Source: patient Exam Limitations: no limitations (ALLEN BASSETT APRN) History of Present Illness Date Seen by Provider: May 16, 2021 Time Seen by Provider: 15:51 Initial Comments To ER with reports of hypoxia and worsening respiratory difficulties. Patient tested positive for Covid at [facility] apparently on the of this month. He is vaccinated with either Moderna or Pfizer, he is not sure which. Yesterday he was started on supplemental oxygen at 2 to 6 L per nasal cannula. He was 89% on room air and up to 94% on 2 L. Today he has needed up to 6 L at one point to keep his oxygen saturation up. He had a negative CT angio chest yesterday. Timing/Duration: constant Prior Episodes/Possible Cause: no prior episodes Modifying Factors: Improves With Activity Associated Symptoms: cough, shortness of breath (ALLEN BASSETT APRN) Allergies and Home Medications Allergies Coded Allergies: No Known Drug Allergies (Unverified , 12/19/11) Home Medications Acetaminophen 500 Mg Tablet, 500 MG PO PRN, (Reported) Aspirin 81 Mg Tabec, 81 MG PO DAILY, (Reported) Atorvastatin Calcium 10 Mg Tablet, 10 MG PO HS Prescribed by: BEV SALAZAR on 11/05/20 0906 Cefuroxime Axetil 250 Mg Tablet, 250 MG PO BID Prescribed by: ALLEN BASSETT on 05/15/21 1533 Clopidogrel 75 Mg Tablet, 75 MG PO DAILY, (Reported) Insulin Aspart 100 Unit/1 Ml Susp, 6 UNIT SQ AC, (Reported) Insulin Determir 1,000 Units/10 Ml Soln, 20 UNITS SQ HS, (Reported) Levofloxacin 500 Mg Tablet, 500 MG PO DAILY Prescribed by: RAMAN MOLINA on 12/06/20 1728 Losartan Potassium 25 Mg Tablet, 25 MG PO DAILY, (Reported) Patient Home Medication List Home Medication List Reviewed: Yes (ALLEN BASSETT APRN) Review of Systems Review of Systems Constitutional: see HPI EENTM: see HPI Respiratory: see HPI, cough Cardiovascular: no symptoms reported Genitourinary: no symptoms reported Musculoskeletal: no symptoms reported Skin: no symptoms reported Psychiatric/Neurological: No Symptoms Reported Hematologic/Lymphatic: No Symptoms Reported Immunological/Allergic: no symptoms reported (ALLEN BASSETT APRN) Past Uvaxjxz-Tbmnpt-Fdhsbn Hx Patient Social History 2nd Hand Smoke Exposure: No Recent Hopitalizations: Yes (ALLEN BASSETT APRN) Immunizations Up To Date Tetanus Booster (TDap): Unknown Date of Pneumonia Vaccine: Aug 08, 2018 Date of Influenza Vaccine: Aug 14, 2020 (ALLEN BASSETT APRN) Past Medical History Surgeries: Yes (prostate,hernia, R toe amputation, r above the knee amp) Prostatectomy Respiratory: No Cardiac: Yes (STENT PLACEMENT 12/21/2011) Coronary Artery Disease, High Cholesterol, Hypertension, Peripheral Vascular Neurological: No Reproductive Disorders: No Gastrointestinal: No Musculoskeletal: No Endocrine: Yes Diabetes, Non-Insulin dep Cancer: No Psychosocial: No Integumentary: Yes (chronic ulcer right foor) Blood Disorders: No (ALLEN BASSETT APRN) Physical Exam Vital Signs - First Documented 05/16/21 05/16/21 15:56 18:37 Temp 36.6 Pulse 90 Resp 18 B/P (MAP) 130/90 (103) Pulse Ox 98 O2 Delivery Nasal Cannula O2 Flow Rate 3.00 (RUBIN FLETCHER MD) Capillary Refill : (ALLEN BASSETT APRN) Height: '" Weight: lbs. oz. kg; 25.00 BMI Method: General Appearance: WD/WN, no apparent distress Eyes: Bilateral Eye Normal Inspection, Bilateral Eye PERRL HEENT: PERRL/EOMI, normal ENT inspection Respiratory: no respiratory distress, no accessory muscle use, decreased breath sounds, crackles, other (95% at 3L) Gastrointestinal: normal bowel sounds, non tender, soft Neurologic/Psychiatric: alert, normal mood/affect, oriented x 3 Skin: normal color, warm/dry (ALLEN BASSETT APRN) Progress/Results/Core Measures Suspected Sepsis SIRS Temperature: Pulse: Respiratory Rate: Laboratory Tests 05/16/21 15:45: White Blood Count 5.9 Blood Pressure / Mean: Laboratory Tests 05/16/21 15:45: Creatinine 1.05, Platelet Count 185 (ALLEN BASSETT APRN) Results/Orders Lab Results Laboratory Tests Test 05/16/21 15:45 05/16/21 16:34 Range/Units White Blood Count 5.9 4.3-11.0 10^3/uL Red Blood Count 4.96 4.30-5.52 10^6/uL Hemoglobin 14.6 13.3-17.7 g/dL Hematocrit 45 40-54 % Mean Corpuscular Volume 91 80-99 fL Mean Corpuscular Hemoglobin 29 25-34 pg Mean Corpuscular Hemoglobin Concent 33 32-36 g/dL Red Cell Distribution Width 14.0 10.0-14.5 % Platelet Count 185 130-400 10^3/uL Mean Platelet Volume 8.9 L 9.0-12.2 fL Immature Granulocyte % (Auto) 1 % Neutrophils (%) (Auto) 78 H 42-75 % Lymphocytes (%) (Auto) 13 12-44 % Monocytes (%) (Auto) 8 0-12 % Eosinophils (%) (Auto) 0 0-10 % Basophils (%) (Auto) 0 0-10 % Neutrophils # (Auto) 4.6 1.8-7.8 10^3/uL Lymphocytes # (Auto) 0.8 L 1.0-4.0 10^3/uL Monocytes # (Auto) 0.4 0.0-1.0 10^3/uL Eosinophils # (Auto) 0.0 0.0-0.3 10^3/uL Basophils # (Auto) 0.0 0.0-0.1 10^3/uL Immature Granulocyte # (Auto) 0.0 0.0-0.1 10^3/uL D-Dimer 1.69 H 0.00-0.49 UG/ML Sodium Level 139 135-145 MMOL/L Potassium Level 4.3 3.6-5.0 MMOL/L Chloride Level 105 98-107 MMOL/L Carbon Dioxide Level 20 L 21-32 MMOL/L Anion Gap 14 5-14 MMOL/L Blood Urea Nitrogen 29 H 7-18 MG/DL Creatinine 1.05 0.60-1.30 MG/DL Estimat Glomerular Filtration Rate > 60 BUN/Creatinine Ratio 28 Glucose Level 117 H 70-105 MG/DL Calcium Level 8.7 8.5-10.1 MG/DL C-Reactive Protein High Sensitivity 15.39 H 0.00-0.50 MG/DL Procalcitonin 0.29 H <0.10 NG/ML Blood Gas Puncture Site R. RAD Blood Gas Patient Temperature 97.8 Arterial Blood pH 7.41 7.37-7.43 Arterial Blood Partial Pressure CO2 26 L 35-45 MMHG Arterial Blood Partial Pressure O2 69 L 79-93 MMHG Arterial Blood HCO3 16 *L 23-27 MMOL/L Arterial Blood Total CO2 17.0 L 21.0-31.0 MMOL/L Arterial Blood Oxygen Saturation 94 94-100 % Arterial Blood Base Excess -7.7 L -2.5-2.5 MMOL/L Jeremias Test YES-POS Blood Gas Ventilator Setting NO Blood Gas Inspired Oxygen 3 (RUBIN FLETCHER MD) Vital Signs/I&O 05/16/21 05/16/21 05/16/21 15:56 17:39 18:37 Temp 36.6 36.6 Pulse 90 94 90 Resp 18 18 18 B/P (MAP) 130/90 (103) 118/66 118/66 Pulse Ox 98 O2 Delivery Nasal Cannula O2 Flow Rate 3.00 (RUBIN FLETCHER MD) Vital Signs/I&O Capillary Refill : (ALLEN BASSETT APRN) Diagnostic Imaging Diagonstic Imaging: Xray Plain Films/CT/US/NM/MRI: chest Comments NAME: SILVANO MAN [facility] REC#: [id number] PT STATUS: REG ER : 1940 PHYSICIAN: ALLEN BASSETT APRN ADMIT DATE: 05/16/21/ER Draft Date of Exam:05/16/21 CHEST 1 VIEW, AP/PA ONLY HISTORY: Covid positive. COMPARISON: 05/15/2021 FINDINGS: Single frontal view of the chest redemonstrates mild patchy opacity in the left lung base, unchanged since the prior exam. No new consolidation is seen. There is no pleural effusion or pneumothorax. The cardiac silhouette is stable in size. IMPRESSION: 1. Stable opacities in the left lung base since the prior exam. No new consolidation is seen. Dictated on workstation # [id number] Dict: 05/16/21 1618 Trans: 05/16/21 1620 [facility] [id number] Interpreted by: MIKE POON MD Electronically signed by: (ALLEN BASSETT APRN) Departure Communication (Admissions) [id number]-due to the very limited bed availability situation here we have decided to admit the stable patient to [facility]. I spoke with Dr. Lewis, she agrees with this plan. He is 93% on 3 L. (ALLEN BASSETT APRN) Impression Primary Impression: COVID-19 Disposition: 09 ADMITTED INPATIENT Condition: Stable Transfer Transfer Reason: Diversion (ALLEN BASSETT APRN) Departure-Patient Inst. Referrals: PERLITA MURILLO MD (PCP/Family) Primary Care Physician Attending physician statement: I was physically present as attending physician in the emergency department during the care of this patient, but I was not directly involved in this patient's care or in the decision making of this patient's case. (RUBIN FLETCHER MD) ALLEN BASSETT APRN May 16, 2021 15:51 RUBIN FLETCHER MD May 16, 2021 20:17
[2021-05-16 15:56] LABS: BASOPHILS % (AUTO) 0 % (0-10); EOSINOPHILS % (AUTO) 0 % (0-10); HEMATOCRIT 45 % (40-54); HEMOGLOBIN 14.6 g/dL (13.3-17.7); LYMPHOCYTES # (AUTO) 0.8 10^3/uL (1.0-4.0); LYMPHOCYTES % (AUTO) 13 % (12-44); MEAN CORPUSCULAR HEMOGLOBIN 29 pg (25-34); MEAN CORPUSCULAR HGB CONC 33 g/dL (32-36); MEAN CORPUSCULAR VOLUME 91 fL (80-99); MEAN PLATELET VOLUME 8.9 fL (9.0-12.2); MONOCYTES # (AUTO) 0.4 10^3/uL (0.0-1.0); MONOCYTES % (AUTO) 8 % (0-12); NEUTROPHILS # (AUTO) 4.6 10^3/uL (1.8-7.8); NEUTROPHILS % (AUTO) 78 % (42-75); PLATELET COUNT 185 10^3/uL (130-400); WHITE BLOOD COUNT 5.9 10^3/uL (4.3-11.0)
[2021-05-16 16:09] LABS: CHLORIDE 105 MMOL/L (98-107); POTASSIUM 4.3 MMOL/L (3.6-5.0); SODIUM 139 MMOL/L (135-145)
[2021-05-16 16:10] LABS: CALCIUM 8.7 MG/DL (8.5-10.1); GLUCOSE 117 MG/DL (70-105)
[2021-05-16 16:12] LABS: CARBON DIOXIDE 20 MMOL/L (21-32)
[2021-05-16 16:14] LABS: CREATININE SERUM 1.05 MG/DL (0.60-1.30); GFR ESTIMATED > 60
[2021-05-16 16:15] LABS: BUN/CREATININE RATIO 28
--- NOTE | 2021-05-16 16:21 | Diagnostic Imaging Report ---
HISTORY: Covid positive. COMPARISON: 05/15/2021 FINDINGS: Single frontal view of the chest redemonstrates mild patchy opacity in the left lung base, unchanged since the prior exam. No new consolidation is seen. There is no pleural effusion or pneumothorax. The cardiac silhouette is stable in size. IMPRESSION: 1. Stable opacities in the left lung base since the prior exam. No new consolidation is seen. Dictated by: Dictated on workstation # [id number]
[2021-05-16 16:38] LABS: ABG BASE EXCESS -7.7 MMOL/L (-2.5-2.5); ABG OXYGEN SATURATION 94 % (94-100); ABG PCO2 26 MMHG (35-45); ABG PH 7.41 (7.37-7.43); ABG PO2 69 MMHG (79-93)
[2021-05-16 16:43] LABS: ALLENS TEST YES-POS; INSPIRED O2 3; PATIENT TEMP 97.8; VENTILATOR NO
[2021-05-16 18:37] VITALS: BP 118/66
== END 2021-05-16 18:37 ==
LOC: EDUNIT# 15:04 → ER 15:05
DX: U07.1 COVID-19 (principal); I10 Essential (primary) hypertension; I25.10 Atherosclerotic heart disease of native coronary artery without angina pectoris; E78.00 Pure hypercholesterolemia, unspecified; E11.9 Type 2 diabetes mellitus without complications; Z79.899 Other long term (current) drug therapy; Z79.82 Long term (current) use of aspirin
CPT/HCPCS: 36415; 71045; 80048; 82805; 84145; 85025; 85379; 86141; 99291

== ENCOUNTER 2021-05-22 10:49 | Inpatient (IN) | payer MEDICARE ==
[~2021-05-22] VITALS: Ht 182.9 cm; Wt 73.3 kg
[2021-05-22] VITALS (10 sets, daily range): BP systolic 112–148; BP diastolic 67–92
[2021-05-22 11:23] LABS: BASOPHILS % (AUTO) 0 % (0-10); EOSINOPHILS % (AUTO) 0 % (0-10); HEMATOCRIT 44 % (40-54); HEMOGLOBIN 14.5 g/dL (13.3-17.7); LYMPHOCYTES # (AUTO) 0.7 10^3/uL (1.0-4.0); LYMPHOCYTES % (AUTO) 6 % (12-44); MEAN CORPUSCULAR HEMOGLOBIN 30 pg (25-34); MEAN CORPUSCULAR HGB CONC 33 g/dL (32-36); MEAN CORPUSCULAR VOLUME 90 fL (80-99); MEAN PLATELET VOLUME 9.1 fL (9.0-12.2); MONOCYTES # (AUTO) 0.4 10^3/uL (0.0-1.0); MONOCYTES % (AUTO) 4 % (0-12); NEUTROPHILS # (AUTO) 9.7 10^3/uL (1.8-7.8); NEUTROPHILS % (AUTO) 87 % (42-75); PLATELET COUNT 335 10^3/uL (130-400); WHITE BLOOD COUNT 11.1 10^3/uL (4.3-11.0)
[2021-05-22 11:25] LABS: ABG BASE EXCESS -7.4 MMOL/L (-2.5-2.5); ABG OXYGEN SATURATION 83 % (94-100); ABG PCO2 20 MMHG (35-45); ABG PO2 43 MMHG (79-93)
[2021-05-22 11:33] LABS: ALLENS TEST YES-POS; INSPIRED O2 15; PATIENT TEMP 36.4; VENTILATOR NO
[2021-05-22 11:34] LABS: ALBUMIN 3.2 GM/DL (3.2-4.5); CHLORIDE 100 MMOL/L (98-107); SODIUM 137 MMOL/L (135-145)
[2021-05-22 11:35] LABS: CALCIUM 8.7 MG/DL (8.5-10.1)
[2021-05-22 11:36] LABS: GLUCOSE 104 MG/DL (70-105); TOTAL PROTEIN 6.9 GM/DL (6.4-8.2)
[2021-05-22 11:37] LABS: CARBON DIOXIDE 18 MMOL/L (21-32)
[2021-05-22 11:38] LABS: BILIRUBIN,TOTAL 0.7 MG/DL (0.1-1.0)
[2021-05-22 11:40] LABS: ALKALINE PHOSPHATASE 65 U/L (40-136); CREATININE SERUM 0.81 MG/DL (0.60-1.30); GFR ESTIMATED > 60
[2021-05-22 11:41] LABS: BUN/CREATININE RATIO 30
[2021-05-22 11:43] LABS: ALANINE AMINOTRANSFERASE 36 U/L (0-55)
[2021-05-22 11:48] LABS: FIBRIN DEGRADATION PRODUCTS 1.89 UG/ML (0.00-0.49); INR 1.1 (0.8-1.4); PROTHROMBIN TIME PATIENT 14.2 SEC (12.2-14.7)
--- NOTE | 2021-05-22 11:50 | Diagnostic Imaging Report ---
INDICATION: Covid positive patient. Sepsis. COMPARISON: 05/16/2021 FINDINGS: Single frontal radiographic view of the chest was obtained. Lung volumes are slightly diminished when compared to prior exam. There has been interval development of patchy and confluent areas of interstitial infiltrate, most notable within the left perihilar region. There is no large effusion or pneumothorax. Cardiac silhouette and pulmonary vasculature are within normal limits. Osseous structures show no acute interval change. IMPRESSION: 1. Interval development of bilateral interstitial infiltrate. Continued follow-up is advised. Dictated by: Dictated on workstation # [id number]
[2021-05-22 11:59] LABS: BAND NEUTROPHILS 0 %; BASOPHILS % (MANUAL) 0 %; EOSINOPHILS % (MANUAL) 0 %; LYMPHOCYTES % (MANUAL) 7 %; MONOCYTES % (MANUAL) 3 %; NEUTROPHILS % (MANUAL) 90 %; RBC MORPH NORMAL
[2021-05-22] MEDS ORDERED: LORazepam INJ 2 MG/ML (ATIVAN) VIAL IVP ONE (12:30)
[2021-05-22] MEDS ORDERED: CEFEPIME INJECTION 1,000 MG in WATER (STERILE) FOR INJECTION 10 ML IV ONE (12:45)
--- NOTE | 2021-05-22 12:50 | ED General ---
General Chief Complaint: Respiratory Problems Stated Complaint: SOB Nursing Triage Note: pt presents to ed via ems from [facility] for increased soa. pt was diagnosed with covid on 05/14. he was admitted to [facility] on 05/16 and discharged to [facility] on 05/20. Nursing Sepsis Screen: Possible Sepsis Risk Source of Information: Patient, EMS, Family, Old Records Exam Limitations: Physical Impairments History of Present Illness Date Seen by Provider: May 22, 2021 Time Seen by Provider: 10:55 Initial Comments This 80-year-old gentleman presents to the emergency room from [facility] with shortness of breath and hypoxia in the context of known COVID-19 infection. He was diagnosed on May 14. He was seen a couple of times in the ER and transferred to [facility]. He was discharged a couple of days ago to the [facility]. Today he was found to be hypoxic with oxygen saturations around 80% and not responding well to nasal cannula. On arrival he has an oxygen saturation of 85% on a high flow mask with a DuoNeb treatment in progress. He requests a full CODE STATUS. Family reports he has had poor oral intake and seems depressed recently. He also complains of intermittent leg aching. Allergies and Home Medications Allergies Coded Allergies: No Known Drug Allergies (Unverified , 12/19/11) Home Medications Acetaminophen 500 Mg Tablet, 500 MG PO PRN, (Reported) Aspirin 81 Mg Tabec, 81 MG PO DAILY, (Reported) Atorvastatin Calcium 10 Mg Tablet, 10 MG PO HS Prescribed by: BEV SALAZAR on 11/05/20 0906 Cefuroxime Axetil 250 Mg Tablet, 250 MG PO BID Prescribed by: ALLEN BASSETT on 05/15/21 1533 Clopidogrel 75 Mg Tablet, 75 MG PO DAILY, (Reported) Insulin Aspart 100 Unit/1 Ml Susp, 6 UNIT SQ AC, (Reported) Insulin Determir 1,000 Units/10 Ml Soln, 20 UNITS SQ HS, (Reported) Levofloxacin 500 Mg Tablet, 500 MG PO DAILY Prescribed by: RAMAN MOLINA on 12/06/20 1728 Losartan Potassium 25 Mg Tablet, 25 MG PO DAILY, (Reported) Patient Home Medication List Home Medication List Reviewed: Yes Review of Systems Review of Systems Constitutional: weakness EENTM: no symptoms reported Respiratory: no symptoms reported Cardiovascular: no symptoms reported Gastrointestinal: see HPI Genitourinary: no symptoms reported Musculoskeletal: no symptoms reported Skin: no symptoms reported Psychiatric/Neurological: See HPI Hematologic/Lymphatic: No Symptoms Reported Immunological/Allergic: no symptoms reported Past Cevgwdb-Nndyxc-Yjrqln Hx Past Med/Social Hx: Reviewed Nursing Past Med/Soc Hx Patient Social History Alcohol Use: Denies Use Smoking Status: Never a Smoker 2nd Hand Smoke Exposure: No Recent Infectious Disease Expo: No Recent Hopitalizations: Yes Immunizations Up To Date Tetanus Booster (TDap): Unknown Date of Pneumonia Vaccine: Aug 08, 2018 Date of Influenza Vaccine: Aug 14, 2020 Past Medical History Surgeries: Yes (prostate,hernia, R toe amputation, r above the knee amp) Prostatectomy Respiratory: Yes (COVID-17 May 2021) Cardiac: Yes (STENT PLACEMENT 12/21/2011) Coronary Artery Disease, High Cholesterol, Hypertension, Peripheral Vascular Neurological: No Reproductive Disorders: No Genitourinary: Yes (bladder neck obstruction) Gastrointestinal: No Musculoskeletal: No Endocrine: Yes Diabetes, Non-Insulin dep HEENT: No Cancer: No Psychosocial: No Integumentary: Yes (chronic ulcer right foor) Blood Disorders: No Physical Exam-Suspected Sepsis Physical Exam Vital Signs Vital Signs - First Documented 05/22/21 05/22/21 11:00 11:16 Temp 36.3 Pulse 103 Resp 26 B/P (MAP) 117/67 (84) Pulse Ox 84 O2 Delivery Non Rebreather O2 Flow Rate 15.00 Capillary Refill : Greater Than 3 Seconds Blood Pressure Mean: 84 Height, Weight, BMI Height: '" Weight: lbs. oz. 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 Norm as Tested Skin: normal color, warm/dry Focused Exam Lactate Level 05/22/21 11:03: Lactic Acid Level 2.05*H 05/22/21 12:55: Lactic Acid Level 2.56*H Lactic Acid Level Laboratory Tests Test 05/22/21 12:55 Lactic Acid Level 2.56 MMOL/L (0.50-2.00) *H Progress/Results/Core Measures Suspected Sepsis Recent Fever Within 48 Hours: No Infection Criteria Present: Documented Infection New/Unexplained Altered Menta: No Sepsis Screen: Possible Sepsis Risk SIRS Temperature: Pulse: 103 Respiratory Rate: 26 Laboratory Tests 05/22/21 11:03: White Blood Count 11.1H Blood Pressure 117 /67 Mean: 84 05/22/21 11:03: Lactic Acid Level 2.05*H 05/22/21 12:55: Lactic Acid Level 2.56*H Laboratory Tests 05/22/21 11:03: Creatinine 0.81, INR Comment 1.1, Platelet Count 335, Total Bilirubin 0.7 Results/Orders Lab Results Laboratory Tests Test 05/22/21 11:03 05/22/21 11:09 05/22/21 12:55 05/22/21 13:50 Range/Units White Blood Count 11.1 H 4.3-11.0 10^3/uL Red Blood Count 4.87 4.30-5.52 10^6/uL Hemoglobin 14.5 13.3-17.7 g/dL Hematocrit 44 40-54 % Mean Corpuscular Volume 90 80-99 fL Mean Corpuscular Hemoglobin 30 25-34 pg Mean Corpuscular Hemoglobin Concent 33 32-36 g/dL Red Cell Distribution Width 13.3 10.0-14.5 % Platelet Count 335 130-400 10^3/uL Mean Platelet Volume 9.1 9.0-12.2 fL Immature Granulocyte % (Auto) 2 % Neutrophils (%) (Auto) 87 H 42-75 % Lymphocytes (%) (Auto) 6 L 12-44 % Monocytes (%) (Auto) 4 0-12 % Eosinophils (%) (Auto) 0 0-10 % Basophils (%) (Auto) 0 0-10 % Neutrophils # (Auto) 9.7 H 1.8-7.8 10^3/uL Lymphocytes # (Auto) 0.7 L 1.0-4.0 10^3/uL Monocytes # (Auto) 0.4 0.0-1.0 10^3/uL Eosinophils # (Auto) 0.0 0.0-0.3 10^3/uL Basophils # (Auto) 0.0 0.0-0.1 10^3/uL Immature Granulocyte # (Auto) 0.2 H 0.0-0.1 10^3/uL Neutrophils % (Manual) 90 % Lymphocytes % (Manual) 7 % Monocytes % (Manual) 3 % Eosinophils % (Manual) 0 % Basophils % (Manual) 0 % Band Neutrophils 0 % Blood Morphology Comment NORMAL Prothrombin Time 14.2 12.2-14.7 SEC INR Comment 1.1 0.8-1.4 Activated Partial Thromboplast Time 26 24-35 SEC D-Dimer 1.89 H 0.00-0.49 UG/ML Sodium Level 137 135-145 MMOL/L Potassium Level 4.0 3.6-5.0 MMOL/L Chloride Level 100 98-107 MMOL/L Carbon Dioxide Level 18 L 21-32 MMOL/L Anion Gap 19 H 5-14 MMOL/L Blood Urea Nitrogen 24 H 7-18 MG/DL Creatinine 0.81 0.60-1.30 MG/DL Estimat Glomerular Filtration Rate > 60 BUN/Creatinine Ratio 30 Glucose Level 104 70-105 MG/DL Lactic Acid Level 2.05 *H 2.56 *H 0.50-2.00 MMOL/L Calcium Level 8.7 8.5-10.1 MG/DL Corrected Calcium 9.3 8.5-10.1 MG/DL Total Bilirubin 0.7 0.1-1.0 MG/DL Aspartate Amino Transf (AST/SGOT) 40 H 5-34 U/L Alanine Aminotransferase (ALT/SGPT) 36 0-55 U/L Alkaline Phosphatase 65 40-136 U/L Lactate Dehydrogenase 510 H 125-220 U/L C-Reactive Protein High Sensitivity 7.81 H 0.00-0.50 MG/DL Total Protein 6.9 6.4-8.2 GM/DL Albumin 3.2 3.2-4.5 GM/DL Procalcitonin 0.08 <0.10 NG/ML Blood Gas Puncture Site R RAD Blood Gas Patient Temperature 36.4 Arterial Blood pH 7.50 H 7.37-7.43 Arterial Blood Partial Pressure CO2 20 L 35-45 MMHG Arterial Blood Partial Pressure O2 43 L 79-93 MMHG Arterial Blood HCO3 15 *L 23-27 MMOL/L Arterial Blood Total CO2 16.0 L 21.0-31.0 MMOL/L Arterial Blood Oxygen Saturation 83 L 94-100 % Arterial Blood Base Excess -7.4 L -2.5-2.5 MMOL/L Jeremias Test YES-POS Blood Gas Ventilator Setting NO Blood Gas Inspired Oxygen 15 Urine Color YELLOW Urine Clarity CLEAR Urine pH 5.5 5-9 Urine Specific [place] 1.015 L 1.016-1.022 Urine Protein 1+ H NEGATIVE Urine Glucose (UA) 3+ H NEGATIVE Urine Ketones 3+ H NEGATIVE Urine Nitrite NEGATIVE NEGATIVE Urine Bilirubin NEGATIVE NEGATIVE Urine Urobilinogen 0.2 < = 1.0 MG/DL Urine Leukocyte Esterase 1+ H NEGATIVE Urine RBC (Auto) 3+ H NEGATIVE Urine RBC 0-2 /HPF Urine WBC 25-50 H /HPF Urine Squamous Epithelial Cells RARE /HPF Urine Crystals NONE /LPF Urine Bacteria TRACE /HPF Urine Casts PRESENT /LPF Urine Hyaline Casts 0-2 H /LPF Urine Mucus NEGATIVE /LPF Urine Yeast MODERATE H /HPF Urine Culture Indicated YES My Orders Orders - RUBIN FLETCHER MD Cbc With Automated Diff (05/22/21 11:13) Comprehensive Metabolic Panel (05/22/21 11:13) Blood Culture (05/22/21 11:13) Sputum Culture (05/22/21 11:13) Urinalysis (05/22/21 11:13) Urine Culture (05/22/21 11:13) Protime With Inr (05/22/21 11:13) Partial Thromboplastin Time (05/22/21 11:13) Chest 1 View, Ap/Pa Only (05/22/21 11:13) Ed Iv/Invasive Line Start (05/22/21 11:13) Ed Iv/Invasive Line Start (05/22/21 11:13) Vital Signs Adult Sepsis Patie Q15M (05/22/21 11:13) O2 (05/22/21 11:13) Remove Rings In Anticipation O (05/22/21 11:13) Lactic Acid Analyzer (05/22/21 11:13) Fibrin Degradation Products (05/22/21 11:13) Procalcitonin (Pct) (05/22/21 11:13) Hs C Reactive Protein (05/22/21 11:13) LDH (05/22/21 11:13) Arterial Blood Gas (05/22/21 11:13) Manual Differential (05/22/21 11:03) Dexamethasone Injection (Decadron Inje (05/22/21 12:30) Lorazepam Injection (Ativan Injection) (05/22/21 12:30) Ct Angio Chest W (05/22/21 12:32) Cefepime Injection (Maxipime Injection) (05/22/21 12:45) Iohexol Injection (Omnipaque 350 Mg/Ml 1 (05/22/21 13:30) Received Contrast (Hold Metformin- Contr (05/22/21 13:30) Ns (Ivpb) (Sodium Chloride 0.9% Ivpb Bag (05/22/21 13:30) Lactated Ringers (Lr 1000 Ml Iv Solution (05/22/21 14:00) Medications Given in ED Current Medications Medications Dose Ordered Sig/Meek Route Start Time Stop Time Status Last Admin Dose Admin Cefepime HCl 1000 mg/Sterile Water 10 ml @ 200 mls/hr ONCE ONCE IV 05/22/21 12:45 05/22/21 12:47 DC 05/22/21 13:49 200 MLS/HR Dexamethasone Sodium Phosphate 6 mg ONCE ONCE IV 05/22/21 12:30 05/22/21 12:31 DC 05/22/21 12:33 6 MG Lorazepam 0.5 mg ONCE ONCE IVP 05/22/21 12:30 05/22/21 12:31 DC 05/22/21 12:34 0.5 MG Vital Signs/I&O 05/22/21 05/22/21 05/22/21 11:00 11:16 15:26 Temp 36.3 Pulse 103 104 Resp 26 33 B/P (MAP) 117/67 (84) Pulse Ox 84 84 100 O2 Delivery Non Rebreather Non Rebreather O2 Flow Rate 15.00 15.00 50.00 Capillary Refill : Greater Than 3 Seconds Blood Pressure Mean: 84 Progress Note : Time: 14:05 Progress Note Patient was hypoxic even on high flow oxygen with a DuoNeb treatment on arrival. BiPAP was initiated which corrected the respiratory failure. Patient's chest x-ray showed adverse progression of groundglass infiltrates. Development of a secondary pneumonia cannot be completely ruled out. Cefepime was started for empiric antibiotic therapy. We will continue with cefepime and a azithromycin on admission. Blood cultures and lactic acid were obtained. D-dimer was elevated prompting CT angiogram of the chest. No PE was identified. Again groundglass infiltrate was noted. Lactic acid increased slightly during his ER stay. IV fluids were ordered. I discussed CODE STATUS with the patient, and he requests to remain full code. Dexamethasone 6 mg IV was administered. Patient was admitted to the [facility] service. Diagnostic Imaging Diagonstic Imaging: Xray Plain Films/CT/US/NM/MRI: chest Comments Chest x-ray reviewed by me and report reviewed. See report below: NAME: SILVANO MAN [facility] REC#: [id number] PT STATUS: REG ER : 1940 PHYSICIAN: RUBIN FLETCHER MD ADMIT DATE: 05/22/21/ER Draft Date of Exam:05/22/21 CHEST 1 VIEW, AP/PA ONLY INDICATION: Covid positive patient. Sepsis. COMPARISON: 05/16/2021 FINDINGS: Single frontal radiographic view of the chest was obtained. Lung volumes are slightly diminished when compared to prior exam. There has been interval development of patchy and confluent areas of interstitial infiltrate, most notable within the left perihilar region. There is no large effusion or pneumothorax. Cardiac silhouette and pulmonary vasculature are within normal limits. Osseous structures show no acute interval change. IMPRESSION: 1. Interval development of bilateral interstitial infiltrate. Continued follow-up is advised. Dictated on workstation # [id number] Dict: 05/22/21 1146 Trans: 05/22/21 1150 [facility] [id number] Interpreted by: ALDA TERRY MD Diagonstic Imaging: CT Plain Films/CT/US/NM/MRI: chest Comments NAME: SILVANO MAN [facility] REC#: [id number] PT STATUS: ADM IN : 1940 PHYSICIAN: RUBIN FLETCHER MD ADMIT DATE: 05/22/21/ICU Draft Date of Exam:05/22/21 CT ANGIO CHEST W PROCEDURE: CT angiography of the chest with contrast. TECHNIQUE: Multiple contiguous axial images were obtained through the chest after uneventful bolus administration of intravenous contrast. 3D reconstructed CTA MIP acquisitions were also performed. Auto Exposure Controls were utilized during the CT exam to meet ALARA standards for radiation dose reduction. INDICATION: Increasing shortness of air. Patient had recent diagnosis of COVID-19. COMPARISON: Correlation is made with prior CT chest study from 05/15/2021. FINDINGS: Evaluation of the pulmonary arterial system is without evidence of thromboembolism. No definite filling defects are seen within central, lobar, or segmental branches. Thoracic aorta is normal in caliber. There is no dissection. No pericardial or pleural fluid is identified. There are some patchy groundglass infiltrates in the posterior upper lobes bilaterally as well as bilateral lower lobes, consistent with patient's diagnosis of COVID-19 pneumonia. Upper abdomen demonstrates small stones in the gallbladder. IMPRESSION: 1. No evidence of pulmonary embolism or thoracic aortic dissection. 2. Bilateral groundglass pulmonary infiltrates, consistent with COVID-19 pneumonia. 3. Cholelithiasis. Dictated on workstation # [id number] Dict: 05/22/21 1331 Trans: 05/22/21 1340 [id number] Interpreted by: ALIA RODRIGUEZ MD Departure Communication (Admissions) Time/Spoke to Admitting Phy: 12:30 Dr. Roy Impression Primary Impression: Respiratory failure Qualified Codes: J96.01 - Acute respiratory failure with hypoxia Additional Impression: COVID-19 Disposition: ADMITTED INPATIENT Condition: Stable Admissions Decision to Admit Reason: Admit from ER (General) Decision to Admit/Date: May 22, 2021 Time/Decision to Admit Time: 11:00 Departure-Patient Inst. Referrals: PERLITA MURILLO MD (PCP/Family) Primary Care Physician RUBIN FLETCHER MD May 22, 2021 12:50
[2021-05-22] MEDS ORDERED: IOHEXOL 350 MG/ML 100 ML (OMNIPAQUE 350) VIAL IV ONE (13:30)
[2021-05-22] MEDS ORDERED: NS 100 ML (IVPB) BAG IV ONE (13:30)
[2021-05-22] MEDS ORDERED: HOLD METFORMIN - RECEIVED CONTRAST 20 ML VIAL IV SCH (13:30)
--- NOTE | 2021-05-22 13:40 | Diagnostic Imaging Report ---
PROCEDURE: CT angiography of the chest with contrast. TECHNIQUE: Multiple contiguous axial images were obtained through the chest after uneventful bolus administration of intravenous contrast. 3D reconstructed CTA MIP acquisitions were also performed. Auto Exposure Controls were utilized during the CT exam to meet ALARA standards for radiation dose reduction. INDICATION: Increasing shortness of air. Patient had recent diagnosis of COVID-19. COMPARISON: Correlation is made with prior CT chest study from 05/15/2021. FINDINGS: Evaluation of the pulmonary arterial system is without evidence of thromboembolism. No definite filling defects are seen within central, lobar, or segmental branches. Thoracic aorta is normal in caliber. There is no dissection. No pericardial or pleural fluid is identified. There are some patchy groundglass infiltrates in the posterior upper lobes bilaterally as well as bilateral lower lobes, consistent with patient's diagnosis of COVID-19 pneumonia. Upper abdomen demonstrates small stones in the gallbladder. IMPRESSION: 1. No evidence of pulmonary embolism or thoracic aortic dissection. 2. Bilateral groundglass pulmonary infiltrates, consistent with COVID-19 pneumonia. 3. Cholelithiasis. Dictated by: Dictated on workstation # [id number]
[2021-05-22] MEDS ORDERED: LACTATED RINGERS 1,000 ML IV ONE ×2 (13:55→14:00)
[2021-05-22 14:01] LABS: BILIRUBIN,URINE NEGATIVE (NEGATIVE); CLARITY,URINE CLEAR; COLOR,URINE YELLOW; GLUCOSE, URINE (UA) 3+ (NEGATIVE); KETONES,URINE 3+ (NEGATIVE); LEUKOCYTE ESTERASE ,URINE 1+ (NEGATIVE); NITRITE,URINE NEGATIVE (NEGATIVE); PH,URINE 5.5 (5-9); PROTEIN,URINE 1+ (NEGATIVE)
[2021-05-22 14:16] LABS: BACTERIA,URINE TRACE /HPF; HYALINE CASTS, URINE 0-2 /LPF; RBC,URINE 0-2 /HPF; SQUAMOUS EPITHELIAL CELL,UR RARE /HPF; WBC,URINE 25-50 /HPF; YEAST,URINE MODERATE /HPF
[2021-05-22] MEDS ORDERED: AZITHROMYCIN 500 MG/NS 250 ML IVPB IV NR ×2 (16:00)
[2021-05-22] MEDS ORDERED: ACETAMINOPHEN 650 MG SUPP (TYLENOL) PR PRN (16:15)
[2021-05-22] MEDS ORDERED: ACETAMINOPHEN 325 MG TABLET PO PRN (16:15)
[2021-05-22] MEDS ORDERED: CATHETER FLUSH 10 ML SYR IV PRN (16:15)
[2021-05-22] MEDS ORDERED: guaiFENesin SYRUP 100 MG/5 ML 10 ML (ROBITUSSIN SF) PO PRN (16:15)
--- NOTE | 2021-05-22 16:38 | Tele-ICU Consult ---
History of Present Illness History of Present Illness Date Seen by Provider: May 22, 2021 Time Seen by Provider: 16:37 Date of Admission Allergies and Home Medications Allergies Coded Allergies: No Known Drug Allergies (Unverified , 12/19/11) Home Medications Acetaminophen 500 Mg Tablet, 500 MG PO PRN, (Reported) Aspirin 81 Mg Tabec, 81 MG PO DAILY, (Reported) Atorvastatin Calcium 10 Mg Tablet, 10 MG PO HS Prescribed by: BEV SALAZAR on 11/05/20 0906 Cefuroxime Axetil 250 Mg Tablet, 250 MG PO BID Prescribed by: ALLEN BASSETT on 05/15/21 1533 Clopidogrel 75 Mg Tablet, 75 MG PO DAILY, (Reported) Insulin Aspart 100 Unit/1 Ml Susp, 6 UNIT SQ AC, (Reported) Insulin Determir 1,000 Units/10 Ml Soln, 20 UNITS SQ HS, (Reported) Levofloxacin 500 Mg Tablet, 500 MG PO DAILY Prescribed by: RAMAN MOLINA on 12/06/20 1728 Losartan Potassium 25 Mg Tablet, 25 MG PO DAILY, (Reported) Past Medical/Social/Family Hx Patient Social History Smoking Status: Never a Smoker Immunizations Up To Date First/Initial COVID19 Vaccinat: reports he got both doses of his covid vac aprox 2 months ago. unsure manuf Date of Pneumonia Vaccine: Aug 08, 2018 Current Status Primary Language: Angolan Review of Systems Constitutional: see HPI Sepsis Event Evaluation Height, Weight, BMI Height: '" Weight: lbs. oz. kg; 22.95 BMI Method: Exam Exam Patient acknowledged, consented, and participated in this virtual visit which was conducted using real time audio/video Vital Signs Date Time Temp Pulse Resp B/P (MAP) Pulse Ox O2 Delivery O2 Flow Rate FiO2 05/22/21 15:26 104 33 100 50.00 05/22/21 15:15 36.3 86 26 145/68 (84) 95 NIV Bilevel 05/22/21 11:16 36.3 103 26 117/67 (84) 84 Non Rebreather 15.00 05/22/21 11:00 84 Non Rebreather 15.00 Height & Weight Height: '" Weight: lbs. oz. 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 ROS as per chart and RN report Patient admitted 05/22- from ER - SOB in rehab with known COVID + , Dx May 14 , severe hypoxia Now in ICU, hemodynamically stable Video assessment done using teleICU camera, rest of exam as per RN Discussed with RN. 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 remdesivir in OSH , too late now Possible bact infection - started on abx 05/22 Elev lactate - most likely due to hypoxix - do not need IVF boluses as per sepsis priticol , receive DM - ISS CAD, s/p stenting , Plavix -ECHO 02/2021 - EF 50 % , gr I dst dsfnc Lines : periph Domínguez: arrived with domínguez OG: Nutrition: npo now on bipap VTE Prophylaxis: lovenox Stress Ulcer Prophylaxis: pepcid ( npo , on steroids Glycemic Control: + Plans in collaboration with bedside consultants and IM MDs. Discussed with RN to reach out if any questions or concerns A total of 25 minutes of critical care time was devoted to this patient today, required to treat and/or prevent further deterioration of critical care condition ( as above ) . GREGOR FRANCO MD May 22, 2021 16:38
[2021-05-22] MEDS: ENOXAPARIN 40 MG/0.4 ML (LOVENOX) SYR SC SCH (17:04)
[2021-05-22] MEDS: ONDANSETRON 4 MG/2 ML (SDV) Z0FRAN IV PRN (17:08)
--- NOTE | 2021-05-22 18:48 | Diagnostic Imaging Report ---
EXAMINATION: US Lower Extremity Venous Duplex Left. TECHNIQUE: Multiple real-time grayscale images were obtained over the left lower extremity in various projections. Additional spectral analysis and color Doppler duplex images were also obtained. HISTORY: Left lower extremity pain and swelling. COVID positive. COMPARISON: None available. FINDINGS: The left common femoral vein, deep femoral vein, superficial femoral vein and popliteal vein are patent with normal gallardo scale and doppler appearance. There is normal respiratory variation and augmentation. IMPRESSION: 1. No DVT of the left lower extremity. Dictated by: Dictated on workstation # [id number]
[2021-05-22] MEDS: inSUlin ASPART (NovoLOG) 1 UNIT/0.01 ML (CHARGE PER UNIT) SC SCH (20:24)
[2021-05-22] MEDS: CEFEPIME 1,000 MG/SWFI 10 ML IV PUSH IV SCH ×2 (20:24)
--- NOTE | 2021-05-22 20:49 | History & Physical ---
HPI History of Present Illness: 80 yo male sent from long-term to ER due to worsening hypoxia in spite of nasal cannula supplementation. At the time of my exam he is breathing fairly easily on bipap, but cannot speak in long sentences or vocalize loudly enough to be heard over bipap well, most history is obtained from the chart. He was diagnosed with COVID19 on 05/15, and was in the hospital at [facility] for a period and had been discharged. Source: patient, RN/MD Exam Limitations: clinical condition Date seen by provider: May 22, 2021 Time Seen by Provider: 19:20 Attending Physician Lauren Roy MD PCP Jm Taylor MD Consult Date of Admission May 22, 2021 at 12:46 Home Medications Home Medications Reviewed patient Home Medication Reconciliation performed by pharmacy medication reconciliations electronic development technician and/or nursing. Patients Allergies have been reviewed. Allergies Coded Allergies: No Known Drug Allergies (Unverified , 12/19/11) FGM-Rfmcnc-Dvymgv Hx Patient Social History Smoking Status: Never a Smoker 2nd Hand Smoke Exposure: No Recent Hopitalizations: Yes Immunizations Up To Date Tetanus Booster (TDap): Unknown Date of Pneumonia Vaccine: Aug 08, 2018 Date of Influenza Vaccine: Aug 14, 2020 Past Medical History PMHx: HTN DMII CKD CAD PAD SurgHx: Right AKA Prostate surgery Cardiac stents Right AKA Family Medical History Significant Family History: Hypertension Review of Systems (CHC) Constitutional: other (unable to obtain) Reviewed Test Results Reviewed Test Results Lab Laboratory Tests Test 05/22/21 11:03 05/22/21 11:09 05/22/21 12:55 05/22/21 13:50 Range/Units White Blood Count 11.1 H 4.3-11.0 10^3/uL Red Blood Count 4.87 4.30-5.52 10^6/uL Hemoglobin 14.5 13.3-17.7 g/dL Hematocrit 44 40-54 % Mean Corpuscular Volume 90 80-99 fL Mean Corpuscular Hemoglobin 30 25-34 pg Mean Corpuscular Hemoglobin Concent 33 32-36 g/dL Red Cell Distribution Width 13.3 10.0-14.5 % Platelet Count 335 130-400 10^3/uL Mean Platelet Volume 9.1 9.0-12.2 fL Immature Granulocyte % (Auto) 2 % Neutrophils (%) (Auto) 87 H 42-75 % Lymphocytes (%) (Auto) 6 L 12-44 % Monocytes (%) (Auto) 4 0-12 % Eosinophils (%) (Auto) 0 0-10 % Basophils (%) (Auto) 0 0-10 % Neutrophils # (Auto) 9.7 H 1.8-7.8 10^3/uL Lymphocytes # (Auto) 0.7 L 1.0-4.0 10^3/uL Monocytes # (Auto) 0.4 0.0-1.0 10^3/uL Eosinophils # (Auto) 0.0 0.0-0.3 10^3/uL Basophils # (Auto) 0.0 0.0-0.1 10^3/uL Immature Granulocyte # (Auto) 0.2 H 0.0-0.1 10^3/uL Neutrophils % (Manual) 90 % Lymphocytes % (Manual) 7 % Monocytes % (Manual) 3 % Eosinophils % (Manual) 0 % Basophils % (Manual) 0 % Band Neutrophils 0 % Blood Morphology Comment NORMAL Prothrombin Time 14.2 12.2-14.7 SEC INR Comment 1.1 0.8-1.4 Activated Partial Thromboplast Time 26 24-35 SEC D-Dimer 1.89 H 0.00-0.49 UG/ML Sodium Level 137 135-145 MMOL/L Potassium Level 4.0 3.6-5.0 MMOL/L Chloride Level 100 98-107 MMOL/L Carbon Dioxide Level 18 L 21-32 MMOL/L Anion Gap 19 H 5-14 MMOL/L Blood Urea Nitrogen 24 H 7-18 MG/DL Creatinine 0.81 0.60-1.30 MG/DL Estimat Glomerular Filtration Rate > 60 BUN/Creatinine Ratio 30 Glucose Level 104 70-105 MG/DL Lactic Acid Level 2.05 *H 2.56 *H 0.50-2.00 MMOL/L Calcium Level 8.7 8.5-10.1 MG/DL Corrected Calcium 9.3 8.5-10.1 MG/DL Total Bilirubin 0.7 0.1-1.0 MG/DL Aspartate Amino Transf (AST/SGOT) 40 H 5-34 U/L Alanine Aminotransferase (ALT/SGPT) 36 0-55 U/L Alkaline Phosphatase 65 40-136 U/L Lactate Dehydrogenase 510 H 125-220 U/L C-Reactive Protein High Sensitivity 7.81 H 0.00-0.50 MG/DL Total Protein 6.9 6.4-8.2 GM/DL Albumin 3.2 3.2-4.5 GM/DL Procalcitonin 0.08 <0.10 NG/ML Blood Gas Puncture Site R RAD Blood Gas Patient Temperature 36.4 Arterial Blood pH 7.50 H 7.37-7.43 Arterial Blood Partial Pressure CO2 20 L 35-45 MMHG Arterial Blood Partial Pressure O2 43 L 79-93 MMHG Arterial Blood HCO3 15 *L 23-27 MMOL/L Arterial Blood Total CO2 16.0 L 21.0-31.0 MMOL/L Arterial Blood Oxygen Saturation 83 L 94-100 % Arterial Blood Base Excess -7.4 L -2.5-2.5 MMOL/L Jeremias Test YES-POS Blood Gas Ventilator Setting NO Blood Gas Inspired Oxygen 15 Urine Color YELLOW Urine Clarity CLEAR Urine pH 5.5 5-9 Urine Specific [place] 1.015 L 1.016-1.022 Urine Protein 1+ H NEGATIVE Urine Glucose (UA) 3+ H NEGATIVE Urine Ketones 3+ H NEGATIVE Urine Nitrite NEGATIVE NEGATIVE Urine Bilirubin NEGATIVE NEGATIVE Urine Urobilinogen 0.2 < = 1.0 MG/DL Urine Leukocyte Esterase 1+ H NEGATIVE Urine RBC (Auto) 3+ H NEGATIVE Urine RBC 0-2 /HPF Urine WBC 25-50 H /HPF Urine Squamous Epithelial Cells RARE /HPF Urine Crystals NONE /LPF Urine Bacteria TRACE /HPF Urine Casts PRESENT /LPF Urine Hyaline Casts 0-2 H /LPF Urine Mucus NEGATIVE /LPF Urine Yeast MODERATE H /HPF Urine Culture Indicated YES Test 05/22/21 15:30 05/22/21 20:18 Range/Units Lactic Acid Level 1.73 0.50-2.00 MMOL/L Glucometer 159 H 70-110 MG/DL Radiology CTA chest 05/22: IMPRESSION: 1. No evidence of pulmonary embolism or thoracic aortic dissection. 2. Bilateral groundglass pulmonary infiltrates, consistent with COVID-19 pneumonia. 3. Cholelithiasis. Physical Exam-(CHC) Physical Exam Vital Signs VS - Last 72 Hours, by Label 05/22/21 05/22/21 05/22/21 05/22/21 11:00 11:16 15:15 15:15 Temp 36.3 36.3 Pulse 103 86 Resp 26 26 B/P (MAP) 117/67 (84) 145/68 (84) Pulse Ox 84 84 95 O2 Delivery Non Rebreather Non Rebreather NIV Bilevel NIV Bilevel O2 Flow Rate 15.00 15.00 FiO2 50 05/22/21 05/22/21 05/22/21 05/22/21 15:15 15:26 15:41 16:00 Pulse 104 90 89 Resp 33 22 B/P (MAP) 148/92 (110) 128/81 (97) Pulse Ox 100 93 O2 Delivery NIV Bilevel NIV Bilevel O2 Flow Rate 50.00 50.00 50.00 05/22/21 05/22/21 05/22/21 05/22/21 17:00 18:00 18:49 18:53 Pulse 87 89 87 Resp 24 B/P (MAP) 141/89 (106) 136/89 (105) Pulse Ox 92 63 97 O2 Delivery NIV Bilevel NIV Bilevel NIV Bilevel O2 Flow Rate 50.00 50.00 40.00 40.00 05/22/21 05/22/21 19:36 20:21 Temp 36.3 36.2 Pulse 103 90 Resp 24 B/P (MAP) 136/89 (105) Pulse Ox 84 92 O2 Delivery NIV Bilevel O2 Flow Rate 40.00 FiO2 100 Capillary Refill : Greater Than 3 Seconds General Appearance: mild distress Respiratory: no accessory muscle use, decreased breath sounds Cardiovascular: regular rate, rhythm, no murmur Gastrointestinal: normal bowel sounds, soft, other (denies tenderness, but flinches with abdominal exam) Extremities: no pedal edema, other (right AKA) Neurologic/Psychiatric: alert, oriented x 3 Skin: normal color, warm/dry Assessment/Plan Assessment/Plan Admission Status: Inpatient Order (span 2 midnights) Reason for Inpatient Admission: Respiratory failure (1) COVID-19 Status: Acute Assessment & Plan: Dexamethasone, proning as tolerated, respiratory support, currently requiring bipap. (2) Respiratory failure Status: Acute Assessment & Plan: Requiring bipap. Suspect secondary to COVID19, but given somewhat delayed presentation, treating for possible secondary pneumonia, cefepime and azithromycin. CTA chest negative for PE. Qualifiers: Qualified Codes: J96.01 - Acute respiratory failure with hypoxia (3) Hypertension Status: Chronic Qualifiers: Qualified Codes: I10 - Essential (primary) hypertension (4) Diabetes mellitus, type 2 Status: Chronic Qualifiers: Qualified Codes: E11.22 - Type 2 diabetes mellitus with diabetic chronic kidney disease; N18.2 - Chronic kidney disease, stage 2 (mild); Z79.4 - assisted (current) use of insulin (5) Coronary artery disease Status: Chronic Qualifiers: Qualified Codes: I25.10 - Atherosclerotic heart disease of [place] coronary artery without angina pectoris (6) Peripheral arterial disease Status: Chronic (7) CKD (chronic kidney disease), stage II (8) DVT prophylaxis Status: Acute Assessment & Plan: Enoxaparin LAUREN ROY MD May 22, 2021 20:49
[2021-05-22] MEDS ORDERED: CLOP75TA28 PO (21:10)
[2021-05-22] MEDS ORDERED: ACHD5005 PO (21:10)
[2021-05-22] MEDS ORDERED: SEMA0.25 INJ (21:10)
[2021-05-22] MEDS ORDERED: MIRT-68 PO (21:10)
[2021-05-22] MEDS ORDERED: GABA-486 PO (21:10)
[2021-05-22] MEDS ORDERED: ATOR20TA66 PO (21:10)
[2021-05-22] MEDS ORDERED: CANA1TAB2 PO (21:10)
[2021-05-22] MEDS: RT-ALBUTEROL INHALER HFA (VENTOLIN HFA) 18 GM IH SCH (21:48)
[2021-05-23] VITALS (24 sets, daily range): BP systolic 103–164; BP diastolic 62–91
[2021-05-23] MEDS: CATHETER FLUSH 10 ML SYR IV SCH ×4 (02:06→20:28)
[2021-05-23] MEDS: CEFEPIME 1,000 MG/SWFI 10 ML IV PUSH IV SCH ×8 (02:07→20:22)
[2021-05-23] MEDS: RT-ALBUTEROL INHALER HFA (VENTOLIN HFA) 18 GM IH SCH ×5 (02:19→23:06)
[2021-05-23 03:20] LABS: BASOPHILS % (AUTO) 0 % (0-10); EOSINOPHILS % (AUTO) 0 % (0-10); HEMATOCRIT 41 % (40-54); HEMOGLOBIN 13.4 g/dL (13.3-17.7); LYMPHOCYTES # (AUTO) 0.5 10^3/uL (1.0-4.0); LYMPHOCYTES % (AUTO) 7 % (12-44); MEAN CORPUSCULAR HEMOGLOBIN 30 pg (25-34); MEAN CORPUSCULAR HGB CONC 33 g/dL (32-36); MEAN CORPUSCULAR VOLUME 89 fL (80-99); MONOCYTES # (AUTO) 0.3 10^3/uL (0.0-1.0); MONOCYTES % (AUTO) 4 % (0-12); NEUTROPHILS % (AUTO) 87 % (42-75); PLATELET COUNT 296 10^3/uL (130-400)
[2021-05-23 03:37] LABS: CHLORIDE 103 MMOL/L (98-107); POTASSIUM 4.7 MMOL/L (3.6-5.0); SODIUM 138 MMOL/L (135-145)
[2021-05-23 03:38] LABS: CALCIUM 8.7 MG/DL (8.5-10.1)
[2021-05-23 03:39] LABS: GLUCOSE 126 MG/DL (70-105)
[2021-05-23 03:40] LABS: CARBON DIOXIDE 17 MMOL/L (21-32)
[2021-05-23 03:42] LABS: PHOSPHORUS 3.7 MG/DL (2.3-4.7)
[2021-05-23 03:43] LABS: CREATININE SERUM 0.98 MG/DL (0.60-1.30); GFR ESTIMATED > 60
[2021-05-23 03:44] LABS: BUN/CREATININE RATIO 30
[2021-05-23 03:45] LABS: MAGNESIUM 2.1 MG/DL (1.6-2.4)
[2021-05-23] MEDS: inSUlin ASPART (NovoLOG) 1 UNIT/0.01 ML (CHARGE PER UNIT) SC SCH ×4 (05:40→20:00)
[2021-05-23] MEDS: ONDANSETRON 4 MG/2 ML (SDV) Z0FRAN IV PRN (06:10)
--- NOTE | 2021-05-23 07:39 | Diagnostic Imaging Report ---
EXAMINATION: Chest 1 view HISTORY: COVID positive, dyspnea COMPARISON: 05/22/2021 FINDINGS: Heart size and pulmonary vasculature are normal. Stable mild interstitial opacities seen throughout both lungs. No significant pleural effusion or pneumothorax. Calcifications of the aorta. The osseous structures are intact. IMPRESSION: 1. Stable patchy interstitial opacities throughout both lungs compatible with history of COVID 19 and pneumonia. Report was faxed to [facility] by pedro at 7:38AM. Dictated by: Dictated on workstation # [id number]
[2021-05-23] MEDS: CLOPIDOGREL 75 MG (PLAVIX) TABLET PO SCH (08:22)
[2021-05-23] MEDS: ASPIRIN E.C. 81 MG (ECOTRIN) TAB PO SCH (08:22)
[2021-05-23] MEDS: FAMOTIDINE 20MG/2ML IV (PEPCID) IVP SCH (08:23)
--- NOTE | 2021-05-23 09:31 | Tele-ICU Progress Note ---
Subjective Date Seen by a Provider: May 23, 2021 Time Seen by a Provider: 09:25 Subjective/Events-last exam Electronic medical records, labs, diagnostic test including chest x-ray reviewed and discussed with the bedside RN. Video visit made Review of Systems Pulmonary: Dyspnea, Other Sepsis Event Evaluation Height, Weight, BMI Height: '" Weight: lbs. oz. kg; 22.95 BMI Method: Focused Exam Lactate Level 05/22/21 11:03: Lactic Acid Level 2.05*H 05/22/21 12:55: Lactic Acid Level 2.56*H 05/22/21 15:30: Lactic Acid Level 1.73 Exam Exam Patient acknowledged, consented, and participated in this virtual visit which was conducted using real time audio/video Vital Signs Date Time Temp Pulse Resp B/P (MAP) Pulse Ox O2 Delivery O2 Flow Rate FiO2 05/23/21 09:00 84 17 118/69 (85) 92 Vapotherm 40.00 100.00 05/23/21 08:30 92 Vapotherm 40.00 100 05/23/21 08:20 36.9 Vapotherm 40.00 100.00 05/23/21 08:00 91 21 117/75 (89) 92 Vapotherm 40.00 100.00 05/23/21 07:00 87 15 112/65 (81) 93 Vapotherm 40.00 100.00 05/23/21 07:00 86 05/23/21 06:22 Vapotherm 40.00 100.00 05/23/21 06:21 94 Vapotherm 40.00 100 05/23/21 06:00 114 21 164/91 (115) 95 NIV Bilevel 70.00 05/23/21 05:37 NIV Bilevel 70.00 05/23/21 05:23 NIV Bilevel 50.00 05/23/21 05:21 NIV Bilevel 50.00 05/23/21 05:00 81 15 116/75 (89) 90 NIV Bilevel 40.00 05/23/21 04:00 NIV Bilevel 40 05/23/21 04:00 83 20 106/64 (78) 90 NIV Bilevel 40.00 05/23/21 04:00 36.0 05/23/21 03:00 86 25 105/70 (82) 90 NIV Bilevel 40.00 6/25/21 02:19 85 24 90 40.00 05/23/21 02:00 89 21 123/81 (95) 91 NIV Bilevel 40.00 05/23/21 01:00 90 05/23/21 01:00 85 18 118/76 (90) 91 NIV Bilevel 40.00 05/23/21 00:00 87 23 139/84 (102) 91 NIV Bilevel 40.00 05/23/21 00:00 36.1 05/22/21 23:59 NIV Bilevel 40 05/22/21 23:00 91 26 122/80 (94) 93 NIV Bilevel 40.00 05/22/21 22:00 88 20 112/83 (93) 93 NIV Bilevel 40.00 05/22/21 21:49 88 24 95 40.00 05/22/21 21:00 90 23 119/78 (92) 95 NIV Bilevel 40.00 05/22/21 20:21 36.2 90 24 136/89 (105) 92 NIV Bilevel 40.00 05/22/21 20:00 NIV Bilevel 40 05/22/21 19:36 36.3 103 84 100 05/22/21 19:00 89 27 131/83 (99) 93 NIV Bilevel 40.00 05/22/21 19:00 90 05/22/21 18:53 87 24 97 40.00 05/22/21 18:49 NIV Bilevel 40.00 05/22/21 18:00 89 29 136/89 (105) 63 NIV Bilevel 50.00 05/22/21 17:00 87 26 141/89 (106) 92 NIV Bilevel 50.00 05/22/21 16:00 89 22 128/81 (97) 93 NIV Bilevel 50.00 05/22/21 15:41 90 05/22/21 15:26 104 33 100 50.00 05/22/21 15:15 148/92 (110) NIV Bilevel 50.00 05/22/21 15:15 NIV Bilevel 50 05/22/21 15:15 36.3 86 26 145/68 (84) 95 NIV Bilevel 05/22/21 11:16 36.3 103 26 117/67 (84) 84 Non Rebreather 15.00 05/22/21 11:00 84 Non Rebreather 15.00 I & O 05/23/21 07:00 Intake Total 90 ml Output Total 975 ml Balance -885 ml Height & Weight Height: '" Weight: lbs. oz. kg; 22.95 BMI Method: General Appearance: No Apparent Distress, WD/WN, Moderate Distress HEENT: PERRL/EOMI, Normal ENT Inspection Neck: Normal Inspection Respiratory: No Accessory Muscle Use, No Respiratory Distress, Crackles (Faint bibasilar), Decreased Breath Sounds Cardiovascular: Regular Rate, Rhythm, No Edema, No Murmur Capillary Refill: Greater Than 3 Seconds Gastrointestinal: normal bowel sounds, soft, other (denies tenderness, but flinches with abdominal exam) Extremity: Normal Inspection, Other (Right AKA) Neurologic/Psychiatric: Alert, Oriented x3, No Motor/Sensory Deficits, Normal Mood/Affect, acid strength inspector II-XII Norm as Tested Results Lab Laboratory Tests 05/22/21 11:03 05/23/21 02:55 Meds REVIEWED Radiology CXR REVIEWED VIA PACS Assessment/Plan Assessment/Plan 1. Acute Covid19 pneumonia) recurrent. 2. Acute hypoxic respiratory failure currently on Vapotherm 40 L/min and 100% FiO2 with an oxygen saturation ranging from 90-94%. 3. Possible acute superimposed bacterial pneumonia. 4. Diabetes mellitus on sliding scale coverage fairly controlled 5. Coronary artery disease status post stenting is on the Plavix. Echo for 2020 revealed EF 50% 6. DVT prophylaxis with Lovenox 7. Ulcer prophylaxis with Pepcid 8. Glycemic control adequate currently Recommendations 1. We will continue to wean FiO2 as tolerated 2. We will increase dexamethasone 6 mg IV push every 12 hours and continue monitor blood sugars. 3. We will also monitor liver enzymes as AST is slightly high Critical Care: Critically Ill Patient Time spent with patient (mins): 35 Diagnosis/Problems Diagnosis/Problems (1) COVID-19 Status: Acute (2) Respiratory failure Status: Acute Qualifiers: Qualified Codes: J96.01 - Acute respiratory failure with hypoxia (3) Diabetes mellitus, type 2 Status: Chronic Qualifiers: Qualified Codes: E11.22 - Type 2 diabetes mellitus with diabetic chronic kidney disease; N18.2 - Chronic kidney disease, stage 2 (mild); Z79.4 - jail (current) use of insulin (4) Hypertension Status: Chronic Qualifiers: Qualified Codes: I10 - Essential (primary) hypertension (5) Peripheral arterial disease Status: Chronic (6) DVT prophylaxis Status: Acute JESSICA COLINDRES MD May 23, 2021 09:31
--- NOTE | 2021-05-23 11:38 | Progress Note ---
Subjective Subjective/Events-last exam Had gagging and vomiting unable to tolerate bipap this am, so switched to vapotherm, but is on 100% FiO2 and saturations around 90-92%. He states he feels okay, denies pain. He does admit feeling short of breath. Focused Exam Lactate Level 05/22/21 11:03: Lactic Acid Level 2.05*H 05/22/21 12:55: Lactic Acid Level 2.56*H 05/22/21 15:30: Lactic Acid Level 1.73 Objective Exam Last Set of Vital Signs Vital Signs Date Time Temp Pulse Resp B/P (MAP) Pulse Ox O2 Delivery O2 Flow Rate FiO2 05/23/21 11:00 93 18 121/74 (90) 90 Vapotherm 40.00 100.00 05/23/21 10:43 100 05/23/21 08:20 36.9 Capillary Refill : Greater Than 3 Seconds I&O Intake and Output 05/23/21 00:00 Intake Total 40 ml Output Total 575 ml Balance -535 ml Intake Oral 30 ml IV Total 10 ml Output Urine Total 575 ml General: Alert Lungs: Other (decreased air movement) Heart: Regular Rate Abdomen: Normal Bowel Sounds, Soft Neuro: Normal Speech Psych/Mental Status: Mental Status NL (oriented to self, location and year) Results/Procedures Lab Laboratory Tests 05/22/21 12:55: Lactic Acid Level 2.56*H 05/22/21 13:50: Urine Color YELLOW, Urine Clarity CLEAR, Urine pH 5.5, Urine Specific [place] 1.015L, Urine Protein 1+H, Urine Glucose (UA) 3+H, Urine Ketones 3+H, Urine Nitrite NEGATIVE, Urine Bilirubin NEGATIVE, Urine Urobilinogen 0.2, Urine Leukocyte Esterase 1+H, Urine RBC (Auto) 3+H, Urine RBC 0-2, Urine WBC 25-50H, Urine Squamous Epithelial Cells RARE, Urine Crystals NONE, Urine Bacteria TRACE, Urine Casts PRESENT, Urine Hyaline Casts 0-2H, Urine Mucus NEGATIVE, Urine Yeast MODERATEH, Urine Culture Indicated YES 05/22/21 15:30: Lactic Acid Level 1.73 05/22/21 20:18: Glucometer 159H 05/23/21 02:55: White Blood Count 7.0, Red Blood Count 4.54, Hemoglobin 13.4, Hematocrit 41, Mean Corpuscular Volume 89, Mean Corpuscular Hemoglobin 30, Mean Corpuscular Hemoglobin Concent 33, Red Cell Distribution Width 13.6, Platelet Count 296, Mean Platelet Volume 9.0, Immature Granulocyte % (Auto) 2, Neutrophils (%) (Auto) 87H, Lymphocytes (%) (Auto) 7L, Monocytes (%) (Auto) 4, Eosinophils (%) (Auto) 0, Basophils (%) (Auto) 0, Neutrophils # (Auto) 6.0, Lymphocytes # (Auto) 0.5L, Monocytes # (Auto) 0.3, Eosinophils # (Auto) 0.0, Basophils # (Auto) 0.0, Immature Granulocyte # (Auto) 0.1, Sodium Level 138, Potassium Level 4.7, Chloride Level 103, Carbon Dioxide Level 17L, Anion Gap 18H, Blood Urea Nitrogen 29H, Creatinine 0.98, Estimat Glomerular Filtration Rate > 60, BUN/Creatinine Ratio 30, Glucose Level 126H, Calcium Level 8.7, Phosphorus Level 3.7, Magnesium Level 2.1 05/23/21 10:38: Glucometer 126H Radiology CTA chest 05/22: IMPRESSION: 1. No evidence of pulmonary embolism or thoracic aortic dissection. 2. Bilateral groundglass pulmonary infiltrates, consistent with COVID-19 pneumonia. 3. Cholelithiasis. Assessment/Plan Assessment/Plan (1) COVID-19 Status: Acute Assessment & Plan: Dexamethasone, proning as tolerated, respiratory support, c urrently requiring bipap. 05/23 changed to vapotherm due to vomiting, monitor closely (2) Respiratory failure Status: Acute Assessment & Plan: Suspect secondary to COVID19, but given somewhat delayed presentation, treating for possible secondary pneumonia, cefepime and azithromycin. CTA chest negative for PE. Qualifiers: Qualified Codes: J96.01 - Acute respiratory failure with hypoxia (3) Hypertension Status: Chronic Qualifiers: Qualified Codes: I10 - Essential (primary) hypertension (4) Diabetes mellitus, type 2 Status: Chronic Qualifiers: Qualified Codes: E11.22 - Type 2 diabetes mellitus with diabetic chronic kidney disease; N18.2 - Chronic kidney disease, stage 2 (mild); Z79.4 - senior living (current) use of insulin (5) Coronary artery disease Status: Chronic Qualifiers: Qualified Codes: I25.10 - Atherosclerotic heart disease of [place] coronary artery without angina pectoris (6) Peripheral arterial disease Status: Chronic (7) CKD (chronic kidney disease), stage II (8) DVT prophylaxis Status: Acute Assessment & Plan: Enoxaparin (9) Goals of care, counseling/discussion Status: Acute Assessment & Plan: Asked patient this morning if he would want to be intubated if vapotherm fails to maintain his oxygenation and he stated "I don't know, maybe as a last resort". Discussed that it is a last resort, but he may be nearing needing that already. He stated that he is not afraid of , "I will be with Cayden". Asked if in light of that that affected his goals and asked if his heart stopped or he needed ventilation would he want us to do those things to try to keep him alive and he stated, no, he is ready to go if it is time. Code status changed, attempted to call family but unable to reach, nursing will try to update. SHAQUILLE RODAS MD May 23, 2021 11:38
[2021-05-23] MEDS ORDERED: MELA3TAB39 PO (14:35)
[2021-05-23] MEDS ORDERED: POLY17PO6 PO (14:35)
[2021-05-23] MEDS ORDERED: CEFD300C3 PO (14:35)
[2021-05-23] MEDS ORDERED: BISA10SU8 RC (14:35)
[2021-05-23] MEDS ORDERED: ASPI-999 PO (14:35)
[2021-05-23] MEDS ORDERED: LACT1CAP7 PO (14:35)
[2021-05-23] MEDS ORDERED: APIX2.5T PO (14:35)
[2021-05-23] MEDS ORDERED: GABA-490 PO (14:42)
[2021-05-23] MEDS ORDERED: DEXA6TAB PO (14:53)
[2021-05-23] MEDS: ENOXAPARIN 40 MG/0.4 ML (LOVENOX) SYR SC SCH (15:26)
[2021-05-23] MEDS: AZITHROMYCIN 250 MG/NS 250 ML IVPB IV SCH ×2 (15:26)
[2021-05-24] VITALS (23 sets, daily range): BP systolic 101–145; BP diastolic 63–105
[2021-05-24] MEDS: CEFEPIME 1,000 MG/SWFI 10 ML IV PUSH IV SCH ×8 (01:21→20:57)
[2021-05-24] MEDS: CATHETER FLUSH 10 ML SYR IV SCH ×3 (01:21→20:57)
[2021-05-24] MEDS: RT-ALBUTEROL INHALER HFA (VENTOLIN HFA) 18 GM IH SCH ×6 (02:22→22:33)
[2021-05-24 04:08] LABS: TOTAL PROTEIN 6.6 GM/DL (6.4-8.2)
[2021-05-24 04:10] LABS: BILIRUBIN,TOTAL 0.5 MG/DL (0.1-1.0)
[2021-05-24 04:14] LABS: BILIRUBIN,DIRECT 0.3 MG/DL (0.0-0.3); BILIRUBIN,INDIRECT 0.2 MG/DL
[2021-05-24 05:51] LABS: BASOPHILS % (AUTO) 0 % (0-10); EOSINOPHILS % (AUTO) 0 % (0-10); HEMATOCRIT 40 % (40-54); HEMOGLOBIN 13.2 g/dL (13.3-17.7); LYMPHOCYTES # (AUTO) 0.3 10^3/uL (1.0-4.0); LYMPHOCYTES % (AUTO) 3 % (12-44); MEAN CORPUSCULAR HEMOGLOBIN 30 pg (25-34); MEAN CORPUSCULAR HGB CONC 33 g/dL (32-36); MEAN CORPUSCULAR VOLUME 90 fL (80-99); MEAN PLATELET VOLUME 9.1 fL (9.0-12.2); MONOCYTES # (AUTO) 0.1 10^3/uL (0.0-1.0); MONOCYTES % (AUTO) 1 % (0-12); NEUTROPHILS % (AUTO) 95 % (42-75); PLATELET COUNT 353 10^3/uL (130-400); WHITE BLOOD COUNT 10.6 10^3/uL (4.3-11.0)
[2021-05-24 05:53] LABS: CHLORIDE 106 MMOL/L (98-107)
[2021-05-24 05:54] LABS: POTASSIUM 4.7 MMOL/L (3.6-5.0); SODIUM 140 MMOL/L (135-145)
[2021-05-24 05:55] LABS: CALCIUM 8.9 MG/DL (8.5-10.1); GLUCOSE 163 MG/DL (70-105)
[2021-05-24 05:57] LABS: CARBON DIOXIDE 12 MMOL/L (21-32)
[2021-05-24 05:59] LABS: CREATININE SERUM 0.93 MG/DL (0.60-1.30); GFR ESTIMATED > 60; PHOSPHORUS 2.7 MG/DL (2.3-4.7)
[2021-05-24 06:00] LABS: BUN/CREATININE RATIO 31
[2021-05-24 06:02] LABS: MAGNESIUM 2.2 MG/DL (1.6-2.4)
[2021-05-24] MEDS: inSUlin ASPART (NovoLOG) 1 UNIT/0.01 ML (CHARGE PER UNIT) SC SCH ×4 (06:37→20:57)
[2021-05-24] MEDS: ASPIRIN E.C. 81 MG (ECOTRIN) TAB PO SCH (08:35)
[2021-05-24] MEDS: FAMOTIDINE 20MG/2ML IV (PEPCID) IVP SCH (08:35)
[2021-05-24] MEDS: CLOPIDOGREL 75 MG (PLAVIX) TABLET PO SCH (08:35)
--- NOTE | 2021-05-24 09:42 | Tele-ICU Progress Note ---
Progress Note 80 y/o male with Covid PNA Uncertain whether he is willing to be intubated Currently comfortable in bed. PE pulse: 73 NSR BP: 144/82 O2sat 96% Labs: WBC: 10.6 Hgb: 13.2 K: 4.7 Bicarb: 12 Assessment/Plan Assessment/Plan 1. Acute Covid19 pneumonia) recurrent. 2. Acute hypoxic respiratory failure currently on O2 with sat of 96% and comfortable 3. Possible acute superimposed bacterial pneumonia.on Cefipime and azithromycin 4. Diabetes mellitus on sliding scale 5. DVT prophylaxis with Lovenox 6. Ulcer prophylaxis with Pepcid Recommendations 1. We will continue to wean FiO2 as tolerated 2; Decrease decadron to 6mg q day Focused Exam Lactate Level 05/22/21 11:03: Lactic Acid Level 2.05*H 05/22/21 12:55: Lactic Acid Level 2.56*H 05/22/21 15:30: Lactic Acid Level 1.73 Height, Weight, BMI Height: '" Weight: lbs. oz. kg; 22.95 BMI Method: PATTI ANTUNEZ MD May 24, 2021 09:42
[2021-05-24] MEDS ORDERED: SODIUM BICARB 8.4% 50 MEQ/50 ML (ABBOTT) SYR IV ONE (10:30)
[2021-05-24] MEDS ORDERED: SODIUM BICARB 8.4% 50 MEQ/50 ML VIAL IV ONE (10:30)
--- NOTE | 2021-05-24 11:27 | Progress Note - Hospitalist ---
Subjective HPI/CC On Admission Date Seen by Provider: May 24, 2021 Time Seen by Provider: 09:45 Subjective/Events-last exam Patient voices no complaints denies shortness of breath or chest pain. Does report feeling weak able to take deep breaths for me without cough. Focused Exam Lactate Level 05/22/21 11:03: Lactic Acid Level 2.05*H 05/22/21 12:55: Lactic Acid Level 2.56*H 05/22/21 15:30: Lactic Acid Level 1.73 Objective Exam Vital Signs Vital Signs Date Time Temp Pulse Resp B/P (MAP) Pulse Ox O2 Delivery O2 Flow Rate FiO2 05/24/21 11:11 94 Vapotherm 35.00 100 05/24/21 11:11 36.8 05/24/21 11:00 80 20 125/82 (96) Capillary Refill : Greater Than 3 Seconds General Appearance: No Apparent Distress, Chronically ill Respiratory: No Accessory Muscle Use, No Respiratory Distress, Other (Scattered rhonchi without wheezing no rales noted.) Cardiovascular: Regular Rate, Rhythm, No Edema, No Gallop, No JVD, No Murmur, Normal Peripheral Pulses Results/Procedures Lab Laboratory Tests 05/24/21 03:05 Patient resulted labs reviewed. Assessment/Plan Assessment and Plan Assess & Plan/Chief Complaint (1) COVID-19 Status: Acute Assessment & Plan: Dexamethasone, proning as tolerated, respiratory support, currently requiring bipap. 05/23 changed to vapotherm due to vomiting, monitor closely. 05/24 no evidence for progression of respiratory failure with ongoing poor respiratory reserve requiring high flow oxygen continue Vapotherm and antibiotic therapy for secondary bacterial infection considering time course. (2) Respiratory failure Status: Acute Assessment & Plan: Suspect secondary to COVID19, but given somewhat delayed presentation, treating for possible secondary pneumonia, cefepime and azithromycin. CTA chest negative for PE. Qualifiers: Qualified Codes: J96.01 - Acute respiratory failure with hypoxia (3) Hypertension Status: Chronic Qualifiers: Qualified Codes: I10 - Essential (primary) hypertension (4) Diabetes mellitus, type 2 Status: Chronic Qualifiers: Qualified Codes: E11.22 - Type 2 diabetes mellitus with diabetic chronic kidney disease; N18.2 - Chronic kidney disease, stage 2 (mild); Z79.4 - detention (current) use of insulin (5) Coronary artery disease Status: Chronic Qualifiers: Qualified Codes: I25.10 - Atherosclerotic heart disease of [place] coronary artery without angina pectoris (6) Peripheral arterial disease Status: Chronic (7) CKD (chronic kidney disease), stage II (8) DVT prophylaxis Status: Acute Assessment & Plan: Enoxaparin (9) Goals of care, counseling/discussion Status: Acute Assessment & Plan: Asked patient this morning if he would want to be intubated if vapotherm fails to maintain his oxygenation and he stated "I don't know, maybe as a last resort". Discussed that it is a last resort, but he may be nearing needing that already. He stated that he is not afraid of , "I will be with Cayden". Asked if in light of that that affected his goals and asked if his heart stopped or he needed ventilation would he want us to do those things to try to keep him alive and he stated, no, he is ready to go if it is time. Code status changed, attempted to call family but unable to reach, nursing will try to update. Critical Care Critically Ill Patient RILEY YORK MD May 24, 2021 11:27
[2021-05-24] MEDS: ENOXAPARIN 40 MG/0.4 ML (LOVENOX) SYR SC SCH (15:25)
[2021-05-24] MEDS: AZITHROMYCIN 250 MG/NS 250 ML IVPB IV SCH ×2 (15:32)
[2021-05-25] VITALS (24 sets, daily range): BP systolic 106–162; BP diastolic 57–102
[2021-05-25] MEDS: RT-ALBUTEROL INHALER HFA (VENTOLIN HFA) 18 GM IH SCH ×6 (02:24→22:07)
[2021-05-25] MEDS: CEFEPIME 1,000 MG/SWFI 10 ML IV PUSH IV SCH ×8 (02:30→20:09)
[2021-05-25] MEDS: CATHETER FLUSH 10 ML SYR IV SCH ×3 (02:30→22:28)
[2021-05-25 03:22] LABS: BASOPHILS % (AUTO) 0 % (0-10); EOSINOPHILS % (AUTO) 0 % (0-10); HEMATOCRIT 38 % (40-54); HEMOGLOBIN 12.8 g/dL (13.3-17.7); LYMPHOCYTES # (AUTO) 0.4 10^3/uL (1.0-4.0); LYMPHOCYTES % (AUTO) 4 % (12-44); MEAN CORPUSCULAR HEMOGLOBIN 30 pg (25-34); MEAN CORPUSCULAR HGB CONC 34 g/dL (32-36); MEAN CORPUSCULAR VOLUME 88 fL (80-99); MEAN PLATELET VOLUME 8.8 fL (9.0-12.2); MONOCYTES # (AUTO) 0.4 10^3/uL (0.0-1.0); MONOCYTES % (AUTO) 4 % (0-12); NEUTROPHILS # (AUTO) 9.4 10^3/uL (1.8-7.8); NEUTROPHILS % (AUTO) 91 % (42-75); PLATELET COUNT 370 10^3/uL (130-400); WHITE BLOOD COUNT 10.3 10^3/uL (4.3-11.0)
[2021-05-25 03:44] LABS: CHLORIDE 108 MMOL/L (98-107); POTASSIUM 4.3 MMOL/L (3.6-5.0); SODIUM 140 MMOL/L (135-145)
[2021-05-25 03:45] LABS: CALCIUM 8.7 MG/DL (8.5-10.1); GLUCOSE 143 MG/DL (70-105)
[2021-05-25 03:47] LABS: CARBON DIOXIDE 14 MMOL/L (21-32)
[2021-05-25 03:49] LABS: GFR ESTIMATED > 60; PHOSPHORUS 1.8 MG/DL (2.3-4.7)
[2021-05-25 03:50] LABS: BUN/CREATININE RATIO 33
[2021-05-25] MEDS: inSUlin ASPART (NovoLOG) 1 UNIT/0.01 ML (CHARGE PER UNIT) SC SCH ×4 (04:26→20:09)
[2021-05-25] MEDS: FAMOTIDINE 20MG/2ML IV (PEPCID) IVP SCH (08:10)
[2021-05-25] MEDS: fluCOnazole (DIFLUCAN) 100 MG TAB PO SCH (08:11)
[2021-05-25] MEDS: CLOPIDOGREL 75 MG (PLAVIX) TABLET PO SCH (08:11)
[2021-05-25] MEDS: ASPIRIN E.C. 81 MG (ECOTRIN) TAB PO SCH (08:11)
--- NOTE | 2021-05-25 09:55 | Tele-ICU Progress Note ---
Subjective Date Seen by a Provider: May 25, 2021 Time Seen by a Provider: 09:51 Subjective/Events-last exam Rounded virtually with BEATRICE Gomez. Patient stable overnight on 30 LPM Vapotherm. Sats only fell to 88-90% when pt removed Vapotherm. Resting comfortably in bed with 95% sats. VSS. Today's plan is to wean Vapotherm. Sepsis Event Evaluation Sepsis Stage: Ruled Out Height, Weight, BMI Height: '" Weight: lbs. oz. kg; 22.95 BMI Method: Bedside Monitoring CVP Measures: 8-12 ScvO2 measures: Greater than 70% Bedside Ultrasound Performed: No Passive Leg Raise/Fluid Bolus: Fluid Responsive Focused Exam Sepsis Stage: Ruled Out Lactate Level 05/22/21 11:03: Lactic Acid Level 2.05*H 05/22/21 12:55: Lactic Acid Level 2.56*H 05/22/21 15:30: Lactic Acid Level 1.73 Time of Focused Exam: 09:30 Respiratory: Lungs Clear Cardiovascular: Regular Rate, Rhythm Peripheral Pulses: 2+ Left Dors-Pedis (L), 2+ Radial Pulses (R) Skin: normal color Lactic Acid Level See freetext note Within 3hrs of presentation: Other Exam Exam Patient acknowledged, consented, and participated in this virtual visit which was conducted using real time audio/video Vital Signs Date Time Temp Pulse Resp B/P (MAP) Pulse Ox O2 Delivery O2 Flow Rate FiO2 05/25/21 08:00 68 24 139/70 (93) 91 Vapotherm 25.00 55.00 05/25/21 07:46 36.4 05/25/21 07:00 68 05/25/21 07:00 71 22 127/70 (89) 95 Vapotherm 25.00 55.00 05/25/21 06:48 95 Vapotherm 25.00 55 05/25/21 06:00 73 13 140/78 (98) 93 Vapotherm 25.00 55.00 05/25/21 05:00 77 20 136/81 (99) 92 Vapotherm 25.00 55.00 05/25/21 04:00 92 Vapotherm 25.00 55 05/25/21 04:00 70 28 120/74 (89) 96 Vapotherm 25.00 55.00 05/25/21 03:00 75 21 129/72 (91) 95 Vapotherm 25.00 55.00 05/25/21 02:24 94 Vapotherm 25.00 55 05/25/21 02:00 71 19 127/80 (96) 93 Vapotherm 25.00 55.00 05/25/21 01:00 72 05/25/21 01:00 70 25 106/57 (73) 94 Vapotherm 25.00 55.00 05/25/21 00:00 74 21 118/71 (87) 96 Vapotherm 25.00 55.00 05/24/21 23:59 90 Vapotherm 25.00 55 05/24/21 23:11 Vapotherm 25.00 55.00 05/24/21 23:00 79 20 128/71 (90) 92 Vapotherm 30.00 60.00 05/24/21 22:33 95 Vapotherm 30.00 60 05/24/21 22:00 75 18 125/65 (85) 93 Vapotherm 30.00 60.00 05/24/21 21:13 98 Vapotherm 30.00 60.00 05/24/21 21:05 Vapotherm 30.00 70.00 05/24/21 21:00 82 25 135/95 (108) Vapotherm 35.00 100.00 05/24/21 20:00 90 Vapotherm 35.00 100 05/24/21 20:00 84 23 91 Vapotherm 35.00 100.00 05/24/21 19:20 35.9 05/24/21 19:00 35.00 100.00 05/24/21 19:00 87 22 124/76 (92) 96 Vapotherm 35.00 100.00 05/24/21 19:00 88 05/24/21 18:44 94 Vapotherm 35.00 100 05/24/21 18:00 79 22 101/86 (91) 94 Vapotherm 35.00 80.00 05/24/21 17:00 94 22 115/80 (92) 94 Vapotherm 35.00 80.00 05/24/21 16:00 90 29 124/76 (92) 89 Vapotherm 35.00 80.00 05/24/21 15:40 36.0 05/24/21 15:35 95 Vapotherm 30.00 80 05/24/21 15:00 86 33 145/93 (110) 93 Vapotherm 35.00 80.00 05/24/21 15:00 94 Vapotherm 30.00 90 05/24/21 14:00 78 25 125/88 (100) 95 Vapotherm 40.00 90.00 05/24/21 13:00 87 20 134/81 (98) 95 Vapotherm 40.00 90.00 05/24/21 12:52 79 05/24/21 12:00 82 22 128/84 (99) 96 Vapotherm 40.00 90.00 05/24/21 11:11 94 Vapotherm 35.00 100 05/24/21 11:11 36.8 05/24/21 11:00 80 20 125/82 (96) 94 Vapotherm 40.00 90.00 05/24/21 10:32 95 Vapotherm 35.00 100 05/24/21 10:00 75 23 140/105 (117) 97 Vapotherm 40.00 90.00 I & O 05/25/21 07:00 Intake Total 360 ml Output Total 1350 ml Balance -990 ml Height & Weight Height: '" Weight: lbs. oz. kg; 22.95 BMI Method: General Appearance: No Apparent Distress, Chronically ill HEENT: PERRL/EOMI, Normal ENT Inspection Neck: Normal Inspection Respiratory: No Accessory Muscle Use, No Respiratory Distress, Other (Scattered rhonchi without wheezing no rales noted.) Cardiovascular: Regular Rate, Rhythm, No Edema, No Gallop, No JVD, No Murmur, Normal Peripheral Pulses Capillary Refill: Greater Than 3 Seconds Gastrointestinal: normal bowel sounds, soft, other (denies tenderness, but flinches with abdominal exam) Extremity: Normal Inspection, Other (Right AKA) Neurologic/Psychiatric: Alert, Oriented x3, No Motor/Sensory Deficits, Normal Mood/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
--- NOTE | 2021-05-25 13:13 | Progress Note - Hospitalist ---
Subjective HPI/CC On Admission Date Seen by Provider: May 25, 2021 Time Seen by Provider: 13:00 Subjective/Events-last exam Pleasantly confused no agitation voicing no complaints. Focused Exam Lactate Level 05/22/21 15:30: Lactic Acid Level 1.73 Objective Exam Vital Signs Vital Signs Date Time Temp Pulse Resp B/P (MAP) Pulse Ox O2 Delivery O2 Flow Rate FiO2 05/25/21 12:54 81 05/25/21 12:00 30 139/90 (106) 91 Vapotherm 25.00 55.00 05/25/21 11:40 36.3 05/25/21 10:43 55 Capillary Refill : Greater Than 3 Seconds General Appearance: No Apparent Distress, Chronically ill Respiratory: No Accessory Muscle Use, No Respiratory Distress, Other (Clear anteriorly decreased breath sounds both bases unchanged no wheezing noted.) Cardiovascular: Regular Rate, Rhythm Results/Procedures Lab Laboratory Tests 05/25/21 03:11 Patient resulted labs reviewed. Assessment/Plan Assessment and Plan Assess & Plan/Chief Complaint (1) COVID-19 Status: Acute Assessment & Plan: Dexamethasone, proning as tolerated, respiratory support, currently requiring bipap. 05/23 changed to vapotherm due to vomiting, monitor closely. 05/24 no evidence for progression of respiratory failure with ongoing poor respiratory reserve requiring high flow oxygen continue Vapotherm and antibiotic therapy for secondary bacterial infection considering time course. 05/25 respiratory status slowly improving decreasing oxygen requirements possible transfer to the floor in the morning. (2) Respiratory failure Status: Acute Assessment & Plan: Suspect secondary to COVID19, but given somewhat delayed presentation, treating for possible secondary pneumonia, cefepime and azithromycin. CTA chest negative for PE. Qualifiers: Qualified Codes: J96.01 - Acute respiratory failure with hypoxia (3) Hypertension Status: Chronic Qualifiers: Qualified Codes: I10 - Essential (primary) hypertension (4) Diabetes mellitus, type 2 Status: Chronic Qualifiers: Qualified Codes: E11.22 - Type 2 diabetes mellitus with diabetic chronic kidney disease; N18.2 - Chronic kidney disease, stage 2 (mild); Z79.4 - intermediate (current) use of insulin (5) Coronary artery disease Status: Chronic Qualifiers: Qualified Codes: I25.10 - Atherosclerotic heart disease of b[place] coronary artery without angina pectoris (6) Peripheral arterial disease Status: Chronic (7) CKD (chronic kidney disease), stage II (8) DVT prophylaxis Status: Acute Assessment & Plan: Enoxaparin (9) Goals of care, counseling/discussion Status: Acute Assessment & Plan: Asked patient this morning if he would want to be intubated if vapotherm fails to maintain his oxygenation and he stated "I don't know, maybe as a last resort". Discussed that it is a last resort, but he may be nearing needing that already. He stated that he is not afraid of , "I will be with [facility]". Asked if in light of that that affected his goals and asked if his heart stopped or he needed ventilation would he want us to do those things to try to keep him alive and he stated, no, he is ready to go if it is time. Code status changed, attempted to call family but unable to reach, nursing will try to update. Critical Care Critically Ill Patient RILEY YORK MD May 25, 2021 13:13
[2021-05-25] MEDS: ENOXAPARIN 40 MG/0.4 ML (LOVENOX) SYR SC SCH (16:45)
[2021-05-25] MEDS: AZITHROMYCIN 250 MG/NS 250 ML IVPB IV SCH ×2 (16:45)
[2021-05-25] MEDS: ONDANSETRON 4 MG/2 ML (SDV) Z0FRAN IV PRN (16:50)
[2021-05-26] VITALS (24 sets, daily range): BP systolic 116–156; BP diastolic 73–99
[2021-05-26] MEDS: RT-ALBUTEROL INHALER HFA (VENTOLIN HFA) 18 GM IH SCH ×6 (02:30→21:59)
[2021-05-26] MEDS: CEFEPIME 1,000 MG/SWFI 10 ML IV PUSH IV SCH ×8 (03:04→20:13)
[2021-05-26 04:01] LABS: BASOPHILS % (AUTO) 0 % (0-10); EOSINOPHILS % (AUTO) 0 % (0-10); HEMATOCRIT 40 % (40-54); HEMOGLOBIN 13.5 g/dL (13.3-17.7); LYMPHOCYTES # (AUTO) 0.3 10^3/uL (1.0-4.0); LYMPHOCYTES % (AUTO) 4 % (12-44); MEAN CORPUSCULAR HEMOGLOBIN 30 pg (25-34); MEAN CORPUSCULAR HGB CONC 34 g/dL (32-36); MEAN CORPUSCULAR VOLUME 88 fL (80-99); MEAN PLATELET VOLUME 8.5 fL (9.0-12.2); MONOCYTES # (AUTO) 0.3 10^3/uL (0.0-1.0); MONOCYTES % (AUTO) 4 % (0-12); NEUTROPHILS # (AUTO) 7.6 10^3/uL (1.8-7.8); NEUTROPHILS % (AUTO) 91 % (42-75); PLATELET COUNT 378 10^3/uL (130-400); WHITE BLOOD COUNT 8.3 10^3/uL (4.3-11.0)
[2021-05-26 04:12] LABS: CHLORIDE 109 MMOL/L (98-107); POTASSIUM 4.2 MMOL/L (3.6-5.0); SODIUM 141 MMOL/L (135-145)
[2021-05-26 04:13] LABS: CALCIUM 9.1 MG/DL (8.5-10.1)
[2021-05-26 04:14] LABS: GLUCOSE 150 MG/DL (70-105)
[2021-05-26 04:15] LABS: CARBON DIOXIDE 15 MMOL/L (21-32)
[2021-05-26 04:17] LABS: PHOSPHORUS 2.4 MG/DL (2.3-4.7)
[2021-05-26 04:18] LABS: CREATININE SERUM 0.79 MG/DL (0.60-1.30); GFR ESTIMATED > 60
[2021-05-26 04:19] LABS: BUN/CREATININE RATIO 41
[2021-05-26] MEDS: inSUlin ASPART (NovoLOG) 1 UNIT/0.01 ML (CHARGE PER UNIT) SC SCH ×4 (05:13→20:17)
[2021-05-26] MEDS: CATHETER FLUSH 10 ML SYR IV SCH ×3 (05:13→22:09)
--- NOTE | 2021-05-26 06:39 | Progress Note - Hospitalist ---
Subjective HPI/CC On Admission Date Seen by Provider: May 26, 2021 Time Seen by Provider: 10:00 Subjective/Events-last exam Pt about the same Bicarb 15 with metabolic acidosis Vapotherm on 30 Liters of 80% No issues DNR Pt chronically debilitated and bed ridden at long term Review of Systems General: Fatigue Objective Exam Vital Signs Vital Signs Date Time Temp Pulse Resp B/P (MAP) Pulse Ox O2 Delivery O2 Flow Rate FiO2 05/27/21 04:00 93 30.00 80 05/27/21 04:00 60 24 136/68 (90) Vapotherm 05/26/21 23:40 36.2 Capillary Refill : Greater Than 3 Seconds General Appearance: No Apparent Distress, WD/WN, Chronically ill, Thin Respiratory: Lungs Clear Cardiovascular: Regular Rate, Rhythm Neurologic/Psychiatric: Alert Results/Procedures Lab Laboratory Tests 05/27/21 03:22 Patient resulted labs reviewed. Assessment/Plan Assessment and Plan Assess & Plan/Chief Complaint Assessment: COVID-19 pneumonia Acute hypoxic respiratory failure requiring Vapotherm DO NOT RESUSCITATE Bedridden chronically ill long term Status post right AKA remotely Plan: Vapotherm Prognosis guarded Critical Care Critically Ill Patient LUH VILLARREAL DO May 26, 2021 06:39
[2021-05-26] MEDS: ASPIRIN E.C. 81 MG (ECOTRIN) TAB PO SCH (08:28)
[2021-05-26] MEDS: fluCOnazole (DIFLUCAN) 100 MG TAB PO SCH (08:28)
[2021-05-26] MEDS: CLOPIDOGREL 75 MG (PLAVIX) TABLET PO SCH (08:28)
[2021-05-26] MEDS: NS IV 1000 ML 1,000 ML IV SCH ×2 (08:29→20:17)
[2021-05-26] MEDS: FAMOTIDINE 20MG/2ML IV (PEPCID) IVP SCH (08:29)
--- NOTE | 2021-05-26 11:57 | Tele-ICU Progress Note ---
Subjective Date Seen by a Provider: May 26, 2021 Time Seen by a Provider: 11:57 Sepsis Event Evaluation Height, Weight, BMI Height: '" Weight: lbs. oz. kg; 22.95 BMI Method: Exam Exam Patient acknowledged, consented, and participated in this virtual visit which was conducted using real time audio/video Vital Signs Date Time Temp Pulse Resp B/P (MAP) Pulse Ox O2 Delivery O2 Flow Rate FiO2 05/26/21 11:00 78 22 133/82 (99) 93 Vapotherm 30.00 70.00 05/26/21 11:00 92 Vapotherm 30.00 70 05/26/21 10:00 77 23 140/78 (98) 93 30.00 70.00 05/26/21 09:36 93 Vapotherm 30.00 75 05/26/21 09:00 74 25 140/87 (104) 92 Vapotherm 30.00 70.00 05/26/21 08:37 36.0 05/26/21 08:00 92 Vapotherm 30.00 70 05/26/21 08:00 81 22 127/79 (95) 91 Vapotherm 30.00 70.00 05/26/21 07:00 90 23 150/85 (106) 93 Vapotherm 30.00 70.00 05/26/21 07:00 78 05/26/21 06:44 92 Vapotherm 30.00 70 05/26/21 06:00 60 27 125/83 (97) 92 Vapotherm 30.00 70.00 05/26/21 05:00 77 23 129/83 (100) 91 Vapotherm 30.00 70.00 05/26/21 04:00 77 24 128/77 (97) 89 Vapotherm 30.00 70.00 05/26/21 04:00 92 Vapotherm 25.00 65 05/26/21 03:20 73 97 Vapotherm 30.00 70.00 05/26/21 03:08 36.1 91 Vapotherm 20.00 65.00 05/26/21 03:00 81 19 126/78 (98) 92 Vapotherm 20.00 65.00 05/26/21 02:31 92 Vapotherm 20.00 65 05/26/21 02:00 82 22 140/99 (113) 91 Vapotherm 20.00 65.00 05/26/21 01:00 79 05/26/21 01:00 79 20 123/93 (111) 92 Vapotherm 20.00 65.00 05/26/21 00:00 85 20 130/85 (101) 92 Vapotherm 20.00 65.00 05/25/21 23:31 90 Vapotherm 20.00 65.00 05/25/21 23:29 35.9 91 Vapotherm 25.00 60.00 05/25/21 23:28 92 Vapotherm 25.00 65 05/25/21 23:00 80 16 121/74 (90) 87 Vapotherm 25.00 65.00 05/25/21 22:11 91 Vapotherm 25.00 65 05/25/21 22:00 80 13 116/79 (85) 87 Vapotherm 25.00 65.00 05/25/21 21:00 89 13 142/90 (108) 89 Vapotherm 25.00 65.00 05/25/21 20:19 92 Vapotherm 25.00 55 05/25/21 20:18 Vapotherm 25.00 65.00 05/25/21 20:00 88 19 136/88 (107) 88 Vapotherm 25.00 65.00 05/25/21 19:46 36.2 05/25/21 19:00 97 14 134/82 (107) 91 Vapotherm 25.00 65.00 05/25/21 19:00 97 05/25/21 18:10 91 Vapotherm 25.00 65 05/25/21 18:00 91 22 133/101 (112) 94 Vapotherm 25.00 65.00 05/25/21 17:03 Vapotherm 25.00 65.00 05/25/21 17:00 96 25 162/97 (118) 92 Vapotherm 25.00 55.00 05/25/21 16:30 93 Vapotherm 25.00 55 05/25/21 16:00 85 27 132/76 (94) 92 Vapotherm 25.00 55.00 05/25/21 15:47 36.1 05/25/21 15:00 82 22 151/99 (116) 93 Vapotherm 25.00 55.00 05/25/21 14:00 82 28 147/101 (116) 90 Vapotherm 25.00 55.00 05/25/21 13:00 79 26 146/81 (102) 91 Vapotherm 25.00 55.00 05/25/21 12:54 81 05/25/21 12:00 94 30 139/90 (106) 91 Vapotherm 25.00 55.00 05/25/21 12:00 93 Vapotherm 25.00 55 I & O 05/26/21 07:00 Intake Total 440 ml Output Total 1025 ml Balance -585 ml Height & Weight Height: '" Weight: lbs. oz. kg; 22.95 BMI Method: General Appearance: No Apparent Distress, Chronically ill HEENT: PERRL/EOMI, Normal ENT Inspection Neck: Normal Inspection Respiratory: No Accessory Muscle Use, No Respiratory Distress, Other (Clear anteriorly decreased breath sounds both bases unchanged no wheezing noted.) Cardiovascular: Regular Rate, Rhythm Capillary Refill: Greater Than 3 Seconds Gastrointestinal: normal bowel sounds, soft, other (denies tenderness, but flinches with abdominal exam) Extremity: Normal Inspection, Other (Right AKA) Neurologic/Psychiatric: Alert, Oriented x3, No Motor/Sensory Deficits, Normal 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 (05/22) 80/M Admit 05/24 - to ICU 30L 80% , L LE US - neg for DVT , A/P Acute Respiratory Failure, COVID PNA., No PE on CTA 05/22 - [id number] 80% - follow closely , recheck D dimer 05/27 COVID POSITIVE 05/14/21, COVID PNA. - steroids IV 6 q24 Met acidosis by chem 7 - monitor , check ABG DM - ISS , as per PCP CAD - stable Lines : , (Central Line Necessity Reviewed) Merida: OG: Nutrition: po - ? adequate - monitor Analgesia: na Anxiety/ delirium presedex tried - off VTE Prophylaxis: L40 Stress Ulcer Prophylaxis: pepcid Glycemic Control: + Plans in collaboration with bedside consultants and IM MDs. Discussed with RN to reach out if any questions or concerns A total of 37 minutes of critical care time was devoted to this patient today, required to treat and/or prevent further deterioration of critical care condition ( as above ) . GREGOR FRANCO MD May 26, 2021 11:57
[2021-05-26] MEDS: ENOXAPARIN 40 MG/0.4 ML (LOVENOX) SYR SC SCH (17:59)
[2021-05-26] MEDS: AZITHROMYCIN 250 MG/NS 250 ML IVPB IV SCH ×2 (17:59)
[2021-05-27] VITALS (15 sets, daily range): BP systolic 119–163; BP diastolic 65–96
[2021-05-27] MEDS: RT-ALBUTEROL INHALER HFA (VENTOLIN HFA) 18 GM IH SCH ×4 (01:49→14:17)
[2021-05-27] MEDS: CEFEPIME 1,000 MG/SWFI 10 ML IV PUSH IV SCH ×4 (01:51→08:29)
[2021-05-27 03:38] LABS: BASOPHILS % (AUTO) 0 % (0-10); EOSINOPHILS % (AUTO) 0 % (0-10); HEMATOCRIT 39 % (40-54); HEMOGLOBIN 13.1 g/dL (13.3-17.7); LYMPHOCYTES # (AUTO) 0.5 10^3/uL (1.0-4.0); LYMPHOCYTES % (AUTO) 5 % (12-44); MEAN CORPUSCULAR HEMOGLOBIN 29 pg (25-34); MEAN CORPUSCULAR HGB CONC 33 g/dL (32-36); MEAN CORPUSCULAR VOLUME 89 fL (80-99); MEAN PLATELET VOLUME 8.7 fL (9.0-12.2); MONOCYTES # (AUTO) 0.2 10^3/uL (0.0-1.0); MONOCYTES % (AUTO) 3 % (0-12); NEUTROPHILS # (AUTO) 8.5 10^3/uL (1.8-7.8); NEUTROPHILS % (AUTO) 91 % (42-75); PLATELET COUNT 367 10^3/uL (130-400); WHITE BLOOD COUNT 9.4 10^3/uL (4.3-11.0)
[2021-05-27 03:52] LABS: CHLORIDE 110 MMOL/L (98-107); POTASSIUM 4.1 MMOL/L (3.6-5.0); SODIUM 139 MMOL/L (135-145)
[2021-05-27 03:53] LABS: CALCIUM 8.7 MG/DL (8.5-10.1)
[2021-05-27 03:54] LABS: GLUCOSE 166 MG/DL (70-105)
[2021-05-27 03:56] LABS: CARBON DIOXIDE 16 MMOL/L (21-32)
[2021-05-27] MEDS: inSUlin ASPART (NovoLOG) 1 UNIT/0.01 ML (CHARGE PER UNIT) SC SCH ×2 (03:57→12:34)
[2021-05-27 03:58] LABS: CREATININE SERUM 0.73 MG/DL (0.60-1.30); GFR ESTIMATED > 60
[2021-05-27 03:59] LABS: BUN/CREATININE RATIO 44
[2021-05-27 05:08] LABS: ABG BASE EXCESS -5.2 MMOL/L (-2.5-2.5); ABG OXYGEN SATURATION 89 % (94-100); ABG PCO2 19 MMHG (35-45); ABG PH 7.55 (7.37-7.43); ABG PO2 57 MMHG (79-93); ABG TCO2 17.7 MMOL/L (21.0-31.0)
[2021-05-27 05:10] LABS: ALLENS TEST YES-POS; INSPIRED O2 80%; PATIENT TEMP 35.8; VENTILATOR NO
[2021-05-27] MEDS ORDERED: KCL 20 MEQ TAB (K-DUR) PO SCH (06:00)
[2021-05-27] MEDS ORDERED: MAGNESIUM 1 GM/100 ML IVPB 100 ML IV SCH (06:00)
[2021-05-27] MEDS ORDERED: POTASSIUM CL 10MEQ/50ML IVPB 50 ML IV SCH (06:00)
[2021-05-27] MEDS: CATHETER FLUSH 10 ML SYR IV SCH (06:36)
--- NOTE | 2021-05-27 06:40 | Progress Note - Hospitalist ---
Subjective HPI/CC On Admission Date Seen by Provider: May 27, 2021 Time Seen by Provider: 10:00 Subjective/Events-last exam Pt about the same Requiring increased oxygen on Vapotherm when they move him [facility] will evaluate him Overall, poor prognosis and that was given by this examiner when he was over at [facility] when he had COVID-19 and I put him there for diversion of [facility]. Review of Systems General: Fatigue, Malaise Pulmonary: Dyspnea Focused Exam Time of Focused Exam: 09:30 Objective Exam Vital Signs Vital Signs Date Time Temp Pulse Resp B/P (MAP) Pulse Ox O2 Delivery O2 Flow Rate FiO2 05/27/21 15:30 05/27/21 14:17 95 Vapotherm 40.00 90 05/27/21 14:00 82 19 05/27/21 12:35 36.1 Capillary Refill : Greater Than 3 Seconds General Appearance: No Apparent Distress, WD/WN, Chronically ill, Thin Respiratory: Lungs Clear, Decreased Breath Sounds Cardiovascular: Regular Rate, Rhythm Neurologic/Psychiatric: Alert, Oriented x3, Disoriented Results/Procedures Lab Patient resulted labs reviewed. Assessment/Plan Assessment and Plan Assess & Plan/Chief Complaint Plan supportive care Antibiotics DiflucanAssessment: COVID-19 pneumonia Acute hypoxic respiratory failure requiring Vapotherm DO NOT RESUSCITATE Bedridden chronically ill jail Status post right AKA remotely Plan: Vapotherm Prognosis guarded 05/27/2021: Vapotherm Monitor closely Transfer to [facility] Critical Care Critically Ill Patient LUH VILLARREAL DO May 27, 2021 06:40
[2021-05-27] MEDS: FAMOTIDINE 20MG/2ML IV (PEPCID) IVP SCH (08:29)
[2021-05-27] MEDS: fluCOnazole (DIFLUCAN) 100 MG TAB PO SCH (08:30)
[2021-05-27] MEDS: ASPIRIN E.C. 81 MG (ECOTRIN) TAB PO SCH (08:30)
[2021-05-27] MEDS: CLOPIDOGREL 75 MG (PLAVIX) TABLET PO SCH (08:30)
[2021-05-27] MEDS: NS IV 1000 ML 1,000 ML IV SCH (08:56)
--- NOTE | 2021-05-27 09:11 | Diagnostic Imaging Report ---
CHEST 1 VIEW, AP/PA ONLY Indication: COVID positive, respiratory failure Comparison: 05/23/2021 Findings: Basilar reticular opacities are unchanged. No new pulmonary opacities. No pleural effusion or pneumothorax. Stable cardiac silhouette. Impression: 1. No change in bibasilar pulmonary opacities likely due to pneumonitis associated with COVID infection. Report was faxed to [facility]/RN Infection Control by pedro at 9:10am. Dictated by: Dictated on workstation # [id number]
--- NOTE | 2021-05-27 09:14 | Tele-ICU Progress Note ---
Subjective Date Seen by a Provider: May 27, 2021 Time Seen by a Provider: 09:14 Sepsis Event Evaluation Height, Weight, BMI Height: '" Weight: lbs. oz. kg; 22.95 BMI Method: Focused Exam Time of Focused Exam: 09:30 Exam Exam Patient acknowledged, consented, and participated in this virtual visit which was conducted using real time audio/video Vital Signs Date Time Temp Pulse Resp B/P (MAP) Pulse Ox O2 Delivery O2 Flow Rate FiO2 05/27/21 08:58 36.1 05/27/21 08:53 Vapotherm 40.00 100.00 05/27/21 08:49 90 Vapotherm 40.00 100 05/27/21 06:46 94 Vapotherm 30.00 80 05/27/21 06:00 70 25 137/86 (103) 92 Vapotherm 30.00 80.00 05/27/21 05:00 69 21 119/65 (83) 88 Vapotherm 30.00 80.00 05/27/21 04:00 93 30.00 80 05/27/21 04:00 60 24 136/68 (90) 92 Vapotherm 30.00 80.00 05/27/21 03:00 64 15 132/69 (89) 91 Vapotherm 30.00 80.00 05/27/21 02:00 73 16 143/79 (107) 92 Vapotherm 30.00 80.00 05/27/21 01:49 89 Vapotherm 30.00 80 05/27/21 01:00 67 17 141/82 (105) 93 Vapotherm 30.00 80.00 05/27/21 01:00 67 05/27/21 00:00 73 17 137/81 (97) 95 Vapotherm 30.00 80.00 05/26/21 23:40 36.2 Vapotherm 30.00 80.00 05/26/21 23:40 92 30.00 80 05/26/21 23:00 76 21 125/73 (97) 92 Vapotherm 30.00 80.00 05/26/21 22:34 Vapotherm 30.00 80.00 05/26/21 22:06 76 17 156/94 (122) 87 Vapotherm 30.00 100.00 05/26/21 22:05 Vapotherm 30.00 100.00 05/26/21 21:59 92 Vapotherm 25.00 60 05/26/21 21:00 73 18 130/82 (113) 91 Vapotherm 25.00 60.00 05/26/21 20:01 78 19 143/88 (118) Vapotherm 25.00 60.00 05/26/21 19:50 36.0 Vapotherm 25.00 60.00 05/26/21 19:00 81 19 145/89 (114) 95 Vapotherm 25.00 60.00 05/26/21 19:00 Vapotherm 25.00 60.00 05/26/21 19:00 81 05/26/21 18:24 97 Vapotherm 30.00 70 05/26/21 18:00 80 17 151/97 (115) 91 Vapotherm 30.00 70.00 05/26/21 17:00 72 24 132/81 (98) 93 Vapotherm 30.00 70.00 05/26/21 16:00 92 Vapotherm 35.00 70 05/26/21 16:00 80 24 116/74 (88) 94 Vapotherm 30.00 70.00 05/26/21 16:00 35.9 05/26/21 15:50 90 Vapotherm 35.00 80 05/26/21 15:00 92 32 132/84 (100) 93 Vapotherm 30.00 70.00 05/26/21 14:00 72 22 148/91 (110) 93 Vapotherm 30.00 70.00 05/26/21 13:00 74 24 137/87 (104) 94 Vapotherm 30.00 70.00 05/26/21 13:00 73 05/26/21 12:00 74 20 136/83 (100) 92 Vapotherm 30.00 70.00 05/26/21 11:00 78 22 133/82 (99) 93 Vapotherm 30.00 70.00 05/26/21 11:00 92 Vapotherm 30.00 70 05/26/21 10:00 77 23 140/78 (98) 93 30.00 70.00 05/26/21 09:36 93 Vapotherm 30.00 75 I & O 05/27/21 07:00 Intake Total 1900 ml Output Total 1400 ml Balance 500 ml Height & Weight Height: '" Weight: lbs. oz. kg; 22.95 BMI Method: General Appearance: No Apparent Distress, WD/WN, Chronically ill, Thin HEENT: PERRL/EOMI, Normal ENT Inspection Neck: Normal Inspection Respiratory: Lungs Clear Cardiovascular: Regular Rate, Rhythm Capillary Refill: Greater Than 3 Seconds Peripheral Pulses: 2+ Left Dors-Pedis (L), 2+ Radial Pulses (R) Gastrointestinal: normal bowel sounds, soft, other (denies tenderness, but flinches with abdominal exam) Extremity: Normal Inspection, Other (Right AKA) Neurologic/Psychiatric: Alert Results Lab Laboratory Tests 05/26/21 03:45 05/27/21 03:22 Assessment/Plan Assessment/Plan (Tele-ICU Physician , Progress Note ) Available chart/ vitals / labs / Images reviewed Video assessment done using teleICU camera, rest of exam as per RN Discussed with RN - patient is aao with occasional confusion , no local neuro deficit Events overnight : Afebrile hemodynamically stable, no pressors, I/O = pos 600 Drips: NS 75 As per RN exam : no change Consultants: Hospital course: COVID POSITIVE 05/14/21. (05/22) 80/M Admit 05/24 - to ICU 30L 80% , L LE US - neg for DVT , 05/22 - urine - yeast A/P Acute Respiratory Failure, COVID PNA., No PE on CTA 05/22 - Vapotherm 30L 80% - follow closely , D dimer 05/27 2.77 COVID POSITIVE 05/14/21, COVID PNA. - steroids IV 6 q24 Met acidosis by chem 7 - monitor , improving DM - ISS , as per PCP CAD - stable Lines : peroph Merida: + OG: Nutrition: po - ? adequate - monitor Analgesia: na Anxiety/ delirium presedex tried - off VTE Prophylaxis: L40 Stress Ulcer Prophylaxis: pepcid Glycemic Control: + Plans in collaboration with bedside consultants and IM MDs. Discussed with RN to reach out if any questions or concerns A total of 28 minutes of critical care time was devoted to this patient today, required to treat and/or prevent further deterioration of critical care condition ( as above GREGOR FRANCO MD May 27, 2021 09:14
[2021-05-27] MEDS ORDERED: DEXA6TAB6 PO (13:46)
[2021-05-27] MEDS ORDERED: CEFE1FRO IV (13:46)
[2021-05-27] MEDS ORDERED: ENOX40DI13 SQ (13:46)
[2021-05-27] MEDS ORDERED: AZIT500V8 IV (13:46)
--- NOTE | 2021-05-27 13:47 | Discharge Summary ---
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, stage 2 (mild); Z79.4 - nursing home (current) use of insulin (4) Hypertension Status: Chronic Qualifiers: Qualified Codes: I10 - Essential (primary) hypertension (5) Peripheral arterial disease Status: Chronic (6) DVT prophylaxis Status: Acute Hospital Course Date of Admission: May 22, 2021 at 12:46 Admission Diagnosis : Family Physician/Provider: Jm Taylor MD Date of Discharge: 05/27/21 Discharge Diagnosis: COVID-19 pneumonia, hypoxia, diabetes, severe debility and bedridden at jail, [facility] Hospital Course: Patient had a lengthy hospital course after he was admitted from the jail after a short stay of 5 days at [facility] admitted there due to [facility] diversion status. Patient was essentially assessed to be a hospice candidate at discharge but he remained status of aggressive treatment so he became more short of breath was admitted to [facility] and placed in the ICU on Vapotherm. He remains DO NOT RESUSCITATE but he was placed on cefepime and azithromycin along with Diflucan for yeast on urine culture and ultimately he required transfer to [place] for long-term Vapotherm maintenance and ultimately stabilized enough to go back to the jail. Poor prognosis. Labs and Pending Lab Test: Laboratory Tests 05/26/21 16:11: Glucometer 259H 05/26/21 20:12: Glucometer 198H 05/27/21 03:22: White Blood Count 9.4, Red Blood Count 4.45, Hemoglobin 13.1L, Hematocrit 39L, Mean Corpuscular Volume 89, Mean Corpuscular Hemoglobin 29, Mean Corpuscular Hemoglobin Concent 33, Red Cell Distribution Width 13.4, Platelet Count 367, Mean Platelet Volume 8.7L, Immature Granulocyte % (Auto) 1, Neutrophils (%) (Auto) 91H, Lymphocytes (%) (Auto) 5L, Monocytes (%) (Auto) 3, Eosinophils (%) (Auto) 0, Basophils (%) (Auto) 0, Neutrophils # (Auto) 8.5H, Lymphocytes # (Auto) 0.5L, Monocytes # (Auto) 0.2, Eosinophils # (Auto) 0.0, Basophils # (Auto) 0.0, Immature Granulocyte # (Auto) 0.1, D-Dimer 2.77H, Sodium Level 139, Potassium Level 4.1, Chloride Level 110H, Carbon Dioxide Level 16L, Anion Gap 13, Blood Urea Nitrogen 32H, Creatinine 0.73, Estimat Glomerular Filtration Rate > 60, BUN/Creatinine Ratio 44, Glucose Level 166H, Calcium Level 8.7, Phosphorus Level 2.0L, Magnesium Level 2.0 05/27/21 05:00: Blood Gas Puncture Site LEFT RADIAL, Blood Gas Patient Temperature 35.8, Arterial Blood pH 7.55H, Arterial Blood Partial Pressure CO2 19*L, Arterial Blood Partial Pressure O2 57L, Arterial Blood HCO3 17*L, Arterial Blood Total CO2 17.7L, Arterial Blood Oxygen Saturation 89L, Arterial Blood Base Excess - 5.2L, Jeremias Test YES-POS, Blood Gas Ventilator Setting NO, Blood Gas Inspired Oxygen 80% 05/27/21 10:24: Glucometer 192H Microbiology 05/22/21 MRSA Screen - Final, Complete MRSA not isolated 05/22/21 Urine Culture - Final, Complete YEAST 05/22/21 Blood Culture - Preliminary, Resulted No growth Home Meds Active Reported Dexamethasone 6 Mg Tablet 6 Mg PO DAILY STARTED 05-21-2021 #5/5 DAY SUPPLY Gabapentin 400 Mg Capsule 400 Mg PO TID Miralax (Polyethylene Glycol 3350) 17 Gm Powd.pack 17 Gm PO DAILY Melatonin 3 Mg Tablet 3 Mg PO HS Cefdinir 300 Mg Capsule 300 Mg PO BID STARTED 05-21-2021 #10/ DAY SUPPLY Bisacodyl 10 Mg Supp.rect 10 Mg RC DAILY PRN Eliquis (Apixaban) 2.5 Mg Tablet 2.5 Mg PO BID Acidophilus-Pectin Capsule (Lactobacillus Acidophilus/Pect) 1 Each Capsule 1 Each PO DAILY Aspirin 81 Mg Tab.chew 81 Mg PO DAILY Clopidogrel (Clopidogrel Bisulfate) 75 Mg Tablet 75 Mg PO DAILY Ozempic (Semaglutide) 0.25 Mg/0.2 Ml Pen.injctr 1 Mg INJ FRI Mirtazapine 15 Mg Tablet 15 Mg PO HS Invokamet 50-1,000 mg Tablet (Canagliflozin/Metformin HCl) 1 Each Tablet 1 Tab PO BID Hydrocodone-Acetamin 5-325 mg (Hydrocodone/Acetaminophen) 1 Each Tablet 1 Tab PO Q8H PRN Atorvastatin Calcium 20 Mg Tablet 20 Mg PO HS Novolog (Insulin Aspart) 100 Unit/1 Ml Susp Unit SQ BID ON WED,,SAT Losartan Potassium 25 Mg Tablet 25 Mg PO DAILY Acetaminophen 500 Mg Tablet 1,000 Mg PO Q8H PRN Assessment/Pt Instructions Transferred to [place] Discharge Planning: <30 minutes discharge planning Discharge Instructions Discharge Diet: No Restrictions Discharge Physical Examination Vital Signs Vital Signs Date Time Temp Pulse Resp B/P (MAP) Pulse Ox O2 Delivery O2 Flow Rate FiO2 05/27/21 13:26 Vapotherm 40.00 80.00 05/27/21 12:35 36.1 05/27/21 12:00 90 70 05/27/21 09:37 23 05/27/21 07:00 75 05/27/21 06:00 137/86 (103) General Appearance: No Apparent Distress, WD/WN, Chronically ill Allergies: Coded Allergies: No Known Drug Allergies (Unverified , 12/19/11) Discharge Summary Date of Admission May 22, 2021 at 12:46 Date of Discharge Discharge Date: May 27, 2021 Comfort Measures/ Advance Care discuss with: patient Time spent on discussion (min): 5 Discharge Diagnosis Assessment: COVID-19 pneumonia Acute hypoxic respiratory failure requiring Vapotherm DO NOT RESUSCITATE Bedridden chronically ill jail Status post right AKA remotely Plan: Vapotherm Prognosis guarded (1) COVID-19 Status: Acute (2) Respiratory failure Status: Acute Qualifiers: Qualified Codes: J96.01 - Acute respiratory failure with hypoxia (3) Diabetes mellitus, type 2 Status: Chronic Qualifiers: Qualified Codes: E11.22 - Type 2 diabetes mellitus with diabetic chronic kidney disease; N18.2 - Chronic kidney disease, stage 2 (mild); Z79.4 - nursing home (current) use of insulin (4) Hypertension Status: Chronic Qualifiers: Qualified Codes: I10 - Essential (primary) hypertension (5) Peripheral arterial disease Status: Chronic (6) DVT prophylaxis Status: Acute LUH VILLARREAL DO May 27, 2021 13:47
== END 2021-05-27 15:30 | DRG 177 ==
LOC: EDUNIT# 10:49 → ER 10:55 → ICU 12:46
PROVIDERS: ADMIT Family Medicine; ATTEND Internal Medicine
DX: U07.1 COVID-19 (principal); J12.82 Pneumonia due to coronavirus disease 2019; J15.9 Unspecified bacterial pneumonia; J96.01 Acute respiratory failure with hypoxia; I12.9 Hypertensive chronic kidney disease with stage 1 through stage 4 chronic kidney disease, or unspecified chronic kidney disease; N18.2 Chronic kidney disease, stage 2 (mild); E11.22 Type 2 diabetes mellitus with diabetic chronic kidney disease; E11.51 Type 2 diabetes mellitus with diabetic peripheral angiopathy without gangrene; Z66 Do not resuscitate; L97.519 Non-pressure chronic ulcer of other part of right foot with unspecified severity; I25.10 Atherosclerotic heart disease of native coronary artery without angina pectoris; E78.00 Pure hypercholesterolemia, unspecified; Z79.4 Long term (current) use of insulin; Z73.0 Burn-out; Z95.5 Presence of coronary angioplasty implant and graft; Z89.611 Acquired absence of right leg above knee; Z79.82 Long term (current) use of aspirin
CPT/HCPCS: 36415; 71045; 71275; 80048; 80053; 80076; 81000; 82805; 82947; 83605; 83615; 83735; 84100; 84145; 85007; 85025; 85027; 85379; 85610; 85730; 86141; 87040; 87081; 87088; 94640; 94660; 96361; 96374; 96375